=== PATIENT | female | born 1960 ===

== ENCOUNTER 2017-10-20 10:18 | Inpatient (IN) ==
[2017-10-24 16:28] VITALS: BP 129/109
== END 2017-10-24 16:25 | disposition home health service (06) | DRG 264 ==
LOC: SUATTDRO 12:23 → N.3E 12:23
PROVIDERS: ADMIT Internal Medicine; ATTEND Internal Medicine

== ENCOUNTER 2017-11-23 01:57 | Observation (INO) ==
[2017-11-23] MEDS ORDERED: GLUCAGON 1 MG VIAL IM PRN (05:20)
[2017-11-23] MEDS ORDERED: DEXTROSE 50% 25 GM/50 ML VIAL IV PRN (05:20)
[2017-11-23] MEDS ORDERED: ONDANSETRON 4 MG/2 ML VIAL IV PRN (05:20)
[2017-11-23 06:47] LABS: Basophils % 0.4 % (0.0-0.8); Eosinophils # 0.1 10*3/uL (0.0-0.87); Eosinophils % 0.8 % (0.00-10.9); Hematocrit 29.1 VOL% (35.7-47.0); Hemoglobin 9.6 GM/DL (12.0-16.0); Immature Granulocytes % 0.3 %; Immature Granulocytes Absolute 0.03 #; Lymphocytes # 1.4 10*3/uL (1.4-4.0); Lymphocytes % 14.5 % (21.3-54.2); Mean Corpuscular Hemoglobin 28 PG (27-34); Mean Corpuscular Volume 84.3 FL (87-102); Mean Platelet Volume 9.2 FL (9.6-12.0); Monocytes # 0.9 10*3/uL (0.11-0.8); Monocytes % 9.1 % (1.7-12.7); Neutrophils # 7.1 10*3/uL (1.4-7.4); Neutrophils % 74.9 % (38.7-73.9); Platelet Count 270 T/CUMM (130-400); Red Blood Count 3.45 MC/CUMM (3.8-5.5); White Blood Count 9.4 T/CUMM (4-12)
[2017-11-23 07:30] LABS: Albumin 2.3 G/DL (3.4-5.0); Bilirubin,Total 0.6 MG/DL (0.2-1.0); Calcium 8.3 MG/DL (8.5-10.1); Osmolality,Calculated 274.5 MOS/KG (273-304); Potassium 4.1 MMOL/L (3.5-5.1); Thyroid Stimulating Hormone 1.43 uIU/ml (0.358-3.74); Total Protein 7.4 G/DL (6.4-8.3)
[2017-11-23] MEDS ORDERED: CARVEDILOL 6.25 MG TABLET PO SCH (09:00)
[2017-11-23] MEDS ORDERED: ASPIRIN EC 81 MG TABLET PO SCH (09:00)
[2017-11-23] MEDS ORDERED: CLOPIDOGREL 75 MG TABLET PO SCH (09:00)
[2017-11-23] MEDS ORDERED: LEVOFLOXACIN 750 MG TABLET PO SCH (09:00)
[2017-11-23] MEDS ORDERED: sitaGLIPtin 100 MG TABLET PO SCH (09:00)
[2017-11-23] MEDS ORDERED: INSULIN LISPRO 100 UNIT/ML SUBCUT SCH (09:00)
[2017-11-23] MEDS ORDERED: OMEGA 3 ACID ETHYL ESTERS 1 GM CAPSULE PO SCH (09:00)
[2017-11-23] MEDS ORDERED: PANTOPRAZOLE 40 MG TABLET PO SCH (09:00)
[2017-11-23] MEDS ORDERED: ENOXAPARIN 40 MG/0.4 ML SYRINGE SUBCUT SCH (09:00)
[2017-11-23] MEDS ORDERED: FUROSEMIDE 20 MG TABLET PO SCH (09:00)
[2017-11-23 12:29] VITALS: BP 110/57
[2017-11-23] MEDS ORDERED: SIMVASTATIN 20 MG TABLET PO SCH (21:00)
[2017-11-23] MEDS ORDERED: MONTELUKAST 10 MG TABLET PO SCH (21:00)
[2017-11-23] MEDS ORDERED: GABAPENTIN 300 MG CAPSULE PO SCH (21:00)
[2017-11-23] MEDS ORDERED: INSULIN GLARGINE 100 UNIT/ML SUBCUT SCH (21:00)
== END 2017-11-23 14:20 | disposition home or self-care (01) ==
LOC: N.ED 01:57 → N.EDINP 01:57 → N.5E 04:27
PROVIDERS: ADMIT Internal Medicine; ATTEND Internal Medicine

== ENCOUNTER 2017-11-28 07:02 | Inpatient (IN) ==
[~2017-11-28 07:02] MED LIST: ceFAZolin 1,000 MG in SYRINGE 1 EACH IV ONE
[2017-11-28] MEDS ORDERED: ceFAZolin 1,000 MG VIAL ONE (08:56)
[2017-11-28] MEDS ORDERED: LACTATED RINGERS 1,000 ML IV SCH (09:00)
[2017-11-28] MEDS ORDERED: LIDOCAINE 1% 20 ML VIAL ONE (13:17)
[2017-11-28] MEDS ORDERED: MIDAZOLAM 2 MG/2 ML VIAL ONE (14:14)
[2017-11-28] MEDS ORDERED: fentaNYL 100 MCG/2 ML VIAL ONE (14:14)
[2017-11-28] MEDS ORDERED: HYDROmorphone 2 MG/1 ML VIAL IV PRN (14:53)
[2017-11-28] MEDS ORDERED: PROMETHAZINE 25 MG/1 ML VIAL IM PRN (14:53)
[2017-11-28] MEDS ORDERED: DEXTROSE 50% 25 GM/50 ML VIAL IV PRN (14:53)
[2017-11-28] MEDS ORDERED: GLUCAGON 1 MG VIAL IM PRN (14:53)
[2017-11-28] MEDS: LACTATED RINGERS 1,000 ML IV SCH (15:55)
[2017-11-28] MEDS: INSULIN REGULAR 100 UNIT/ML SUBCUT SCH ×2 (16:02→21:05)
[2017-11-28] MEDS: INSULIN LISPRO 100 UNIT/ML SUBCUT SCH ×2 (16:02→21:04)
[2017-11-28] MEDS: LEVOFLOXACIN 750 MG TABLET PO SCH (16:11)
[2017-11-28] MEDS: SIMVASTATIN 20 MG TABLET PO SCH (21:04)
[2017-11-28] MEDS: INSULIN GLARGINE 100 UNIT/ML SUBCUT SCH (21:04)
[2017-11-28] MEDS: GABAPENTIN 300 MG CAPSULE PO SCH (21:04)
[2017-11-28] MEDS: FUROSEMIDE 20 MG TABLET PO SCH (21:04)
[2017-11-28] MEDS: ONDANSETRON 4 MG/2 ML VIAL IV PRN (23:45)
[2017-11-29 05:16] LABS: Basophils % 0.3 % (0.0-0.8); Eosinophils # 0.1 10*3/uL (0.0-0.87); Eosinophils % 0.9 % (0.00-10.9); Hematocrit 24.8 VOL% (35.7-47.0); Hemoglobin 8.2 GM/DL (12.0-16.0); Immature Granulocytes % 0.7 %; Immature Granulocytes Absolute 0.08 #; Lymphocytes # 1.3 10*3/uL (1.4-4.0); Lymphocytes % 10.8 % (21.3-54.2); Mean Corpuscular HGB Conc 33.1 GM/DL (32-36); Mean Corpuscular Hemoglobin 28 PG (27-34); Mean Corpuscular Volume 83.8 FL (87-102); Mean Platelet Volume 8.9 FL (9.6-12.0); Monocytes # 1.1 10*3/uL (0.11-0.8); Monocytes % 9.1 % (1.7-12.7); Neutrophils # 9.2 10*3/uL (1.4-7.4); Neutrophils % 78.2 % (38.7-73.9); Platelet Count 342 T/CUMM (130-400); Red Blood Count 2.96 MC/CUMM (3.8-5.5); Red Cell Distribution Width 13.4 % (9.3-17.3); White Blood Count 11.7 T/CUMM (4-12)
[2017-11-29] MEDS: ONDANSETRON 4 MG/2 ML VIAL IV PRN (05:41)
[2017-11-29 05:51] LABS: Calcium 8.3 MG/DL (8.5-10.1); Osmolality,Calculated 271.4 MOS/KG (273-304); Potassium 4.6 MMOL/L (3.5-5.1)
[2017-11-29] MEDS: INSULIN REGULAR 100 UNIT/ML SUBCUT SCH ×4 (07:27→20:35)
[2017-11-29] MEDS: MONTELUKAST 10 MG TABLET PO SCH ×2 (09:05→09:10)
[2017-11-29] MEDS: CARVEDILOL 6.25 MG TABLET PO SCH (09:06)
[2017-11-29] MEDS: ASPIRIN EC 81 MG TABLET PO SCH (09:06)
[2017-11-29] MEDS: CLOPIDOGREL 75 MG TABLET PO SCH (09:06)
[2017-11-29] MEDS: FUROSEMIDE 20 MG TABLET PO SCH ×2 (09:06→20:34)
[2017-11-29] MEDS: OMEGA 3 ACID ETHYL ESTERS 1 GM CAPSULE PO SCH (09:06)
[2017-11-29] MEDS: INSULIN LISPRO 100 UNIT/ML SUBCUT SCH ×3 (09:08→20:35)
[2017-11-29] MEDS: ENOXAPARIN 40 MG/0.4 ML SYRINGE SUBCUT SCH (09:08)
[2017-11-29] MEDS: LACTATED RINGERS 1,000 ML IV SCH (16:10)
[2017-11-29] MEDS: GABAPENTIN 300 MG CAPSULE PO SCH (20:35)
[2017-11-29] MEDS: INSULIN GLARGINE 100 UNIT/ML SUBCUT SCH (20:35)
[2017-11-29] MEDS: SIMVASTATIN 20 MG TABLET PO SCH (20:35)
[2017-11-30] MEDS: INSULIN REGULAR 100 UNIT/ML SUBCUT SCH ×4 (08:24→21:13)
[2017-11-30] MEDS: ENOXAPARIN 40 MG/0.4 ML SYRINGE SUBCUT SCH (08:25)
[2017-11-30] MEDS: ASPIRIN EC 81 MG TABLET PO SCH (08:25)
[2017-11-30] MEDS: CLOPIDOGREL 75 MG TABLET PO SCH (08:45)
[2017-11-30] MEDS: FUROSEMIDE 20 MG TABLET PO SCH ×2 (08:45→21:13)
[2017-11-30] MEDS: INSULIN LISPRO 100 UNIT/ML SUBCUT SCH ×3 (08:45→21:14)
[2017-11-30] MEDS: CARVEDILOL 6.25 MG TABLET PO SCH (08:45)
[2017-11-30] MEDS: OMEGA 3 ACID ETHYL ESTERS 1 GM CAPSULE PO SCH (08:45)
[2017-11-30] MEDS: LACTATED RINGERS 1,000 ML IV SCH (12:31)
[2017-11-30] MEDS: LEVOFLOXACIN 750 MG TABLET PO SCH (16:17)
[2017-11-30] MEDS: MONTELUKAST 10 MG TABLET PO SCH (21:13)
[2017-11-30] MEDS: GABAPENTIN 300 MG CAPSULE PO SCH (21:13)
[2017-11-30] MEDS: SIMVASTATIN 20 MG TABLET PO SCH (21:13)
[2017-11-30] MEDS: INSULIN GLARGINE 100 UNIT/ML SUBCUT SCH (21:13)
[2017-12-01 06:18] LABS: Basophils % 0.2 % (0.0-0.8); Eosinophils # 0.2 10*3/uL (0.0-0.87); Eosinophils % 2.2 % (0.00-10.9); Hematocrit 25.5 VOL% (35.7-47.0); Hemoglobin 8.6 GM/DL (12.0-16.0); Immature Granulocytes % 1.1 %; Lymphocytes # 1.6 10*3/uL (1.4-4.0); Lymphocytes % 18.3 % (21.3-54.2); Mean Corpuscular HGB Conc 33.7 GM/DL (32-36); Mean Corpuscular Hemoglobin 28 PG (27-34); Mean Platelet Volume 9.2 FL (9.6-12.0); Monocytes # 0.9 10*3/uL (0.11-0.8); Monocytes % 9.8 % (1.7-12.7); NRBC # 0.02 10*3/uL; Neutrophils # 6.1 10*3/uL (1.4-7.4); Neutrophils % 68.4 % (38.7-73.9); Platelet Count 461 T/CUMM (130-400); Red Blood Count 3.11 MC/CUMM (3.8-5.5); Red Cell Distribution Width 13.6 % (9.3-17.3); White Blood Count 8.9 T/CUMM (4-12)
[2017-12-01 06:34] LABS: Calcium 8.2 MG/DL (8.5-10.1); Osmolality,Calculated 283.7 MOS/KG (273-304); Potassium 4.2 MMOL/L (3.5-5.1)
[2017-12-01] MEDS: INSULIN REGULAR 100 UNIT/ML SUBCUT SCH ×4 (07:51→21:10)
[2017-12-01] MEDS: ENOXAPARIN 40 MG/0.4 ML SYRINGE SUBCUT SCH (07:51)
[2017-12-01] MEDS: CARVEDILOL 6.25 MG TABLET PO SCH (07:59)
[2017-12-01] MEDS: INSULIN LISPRO 100 UNIT/ML SUBCUT SCH ×3 (08:00→21:09)
[2017-12-01] MEDS: ASPIRIN EC 81 MG TABLET PO SCH (08:00)
[2017-12-01] MEDS: CLOPIDOGREL 75 MG TABLET PO SCH (08:01)
[2017-12-01] MEDS: OMEGA 3 ACID ETHYL ESTERS 1 GM CAPSULE PO SCH (08:01)
[2017-12-01] MEDS: FUROSEMIDE 20 MG TABLET PO SCH ×2 (08:01→21:08)
[2017-12-01] MEDS ORDERED: LIDOCAINE 1% 20 ML VIAL ONE (08:45)
[2017-12-01] MEDS: SULFAMETHOX/TRIMETHOPRIM 800-160 MG TABLET PO SCH ×2 (09:45→21:08)
[2017-12-01] MEDS ORDERED: PROPOFOL 200 MG/20 ML VIAL IV ONE (09:50)
[2017-12-01] MEDS ORDERED: SODIUM CHLORIDE 0.9% 250 ML IV ONE (09:50)
[2017-12-01] MEDS ORDERED: KETAMINE 500 MG/10 ML VIAL ONE (09:50)
[2017-12-01] MEDS ORDERED: ETOMIDATE 40 MG/20 ML VIAL IV ONE (09:50)
[2017-12-01] MEDS: MONTELUKAST 10 MG TABLET PO SCH (21:08)
[2017-12-01] MEDS: SIMVASTATIN 20 MG TABLET PO SCH (21:09)
[2017-12-01] MEDS: GABAPENTIN 300 MG CAPSULE PO SCH (21:09)
[2017-12-01] MEDS: INSULIN GLARGINE 100 UNIT/ML SUBCUT SCH (21:11)
[2017-12-02] MEDS: LACTATED RINGERS 1,000 ML IV SCH ×2 (02:12→23:25)
[2017-12-02] MEDS: INSULIN REGULAR 100 UNIT/ML SUBCUT SCH ×4 (08:05→21:48)
[2017-12-02] MEDS: CLOPIDOGREL 75 MG TABLET PO SCH (09:10)
[2017-12-02] MEDS: ASPIRIN EC 81 MG TABLET PO SCH (09:10)
[2017-12-02] MEDS: ENOXAPARIN 40 MG/0.4 ML SYRINGE SUBCUT SCH (09:11)
[2017-12-02] MEDS: OMEGA 3 ACID ETHYL ESTERS 1 GM CAPSULE PO SCH (09:11)
[2017-12-02] MEDS: SULFAMETHOX/TRIMETHOPRIM 800-160 MG TABLET PO SCH ×2 (09:11→21:48)
[2017-12-02] MEDS: CARVEDILOL 6.25 MG TABLET PO SCH (09:11)
[2017-12-02] MEDS: INSULIN LISPRO 100 UNIT/ML SUBCUT SCH ×3 (09:14→21:47)
[2017-12-02] MEDS: FUROSEMIDE 20 MG TABLET PO SCH ×2 (09:17→21:47)
[2017-12-02] MEDS: ONDANSETRON 4 MG/2 ML VIAL IV PRN (19:05)
[2017-12-02] MEDS: MONTELUKAST 10 MG TABLET PO SCH (21:47)
[2017-12-02] MEDS: SIMVASTATIN 20 MG TABLET PO SCH (21:47)
[2017-12-02] MEDS: INSULIN GLARGINE 100 UNIT/ML SUBCUT SCH (21:48)
[2017-12-02] MEDS: GABAPENTIN 300 MG CAPSULE PO SCH (21:48)
[2017-12-03] MEDS: INSULIN LISPRO 100 UNIT/ML SUBCUT SCH ×3 (09:13→21:03)
[2017-12-03] MEDS: CARVEDILOL 6.25 MG TABLET PO SCH ×2 (09:14→09:16)
[2017-12-03] MEDS: OMEGA 3 ACID ETHYL ESTERS 1 GM CAPSULE PO SCH (09:14)
[2017-12-03] MEDS: ASPIRIN EC 81 MG TABLET PO SCH (09:14)
[2017-12-03] MEDS: FUROSEMIDE 20 MG TABLET PO SCH ×2 (09:14→21:14)
[2017-12-03] MEDS: CLOPIDOGREL 75 MG TABLET PO SCH (09:14)
[2017-12-03] MEDS: SULFAMETHOX/TRIMETHOPRIM 800-160 MG TABLET PO SCH ×2 (09:14→21:14)
[2017-12-03] MEDS: ENOXAPARIN 40 MG/0.4 ML SYRINGE SUBCUT SCH (09:14)
[2017-12-03] MEDS: INSULIN REGULAR 100 UNIT/ML SUBCUT SCH ×4 (09:46→21:03)
[2017-12-03] MEDS: ONDANSETRON 4 MG/2 ML VIAL IV PRN (17:52)
[2017-12-03] MEDS: GABAPENTIN 300 MG CAPSULE PO SCH (21:14)
[2017-12-03] MEDS: MONTELUKAST 10 MG TABLET PO SCH (21:14)
[2017-12-03] MEDS: INSULIN GLARGINE 100 UNIT/ML SUBCUT SCH (21:15)
[2017-12-03] MEDS: SIMVASTATIN 20 MG TABLET PO SCH (21:15)
[2017-12-03] MEDS: LACTATED RINGERS 1,000 ML IV SCH (21:22)
[2017-12-04] MEDS: ONDANSETRON 4 MG/2 ML VIAL IV PRN ×2 (04:24→17:15)
[2017-12-04] MEDS: INSULIN REGULAR 100 UNIT/ML SUBCUT SCH ×4 (09:19→22:41)
[2017-12-04] MEDS: ENOXAPARIN 40 MG/0.4 ML SYRINGE SUBCUT SCH (09:21)
[2017-12-04] MEDS: ASPIRIN EC 81 MG TABLET PO SCH (09:21)
[2017-12-04] MEDS: OMEGA 3 ACID ETHYL ESTERS 1 GM CAPSULE PO SCH (09:21)
[2017-12-04] MEDS: SULFAMETHOX/TRIMETHOPRIM 800-160 MG TABLET PO SCH ×2 (09:21→21:15)
[2017-12-04] MEDS: FUROSEMIDE 20 MG TABLET PO SCH ×2 (09:22→21:15)
[2017-12-04] MEDS: CLOPIDOGREL 75 MG TABLET PO SCH (09:22)
[2017-12-04] MEDS: INSULIN LISPRO 100 UNIT/ML SUBCUT SCH ×3 (09:22→22:40)
[2017-12-04] MEDS: CARVEDILOL 6.25 MG TABLET PO SCH (09:22)
[2017-12-04] MEDS ORDERED: BISACODYL 5 MG TABLET PO PRN (10:07)
[2017-12-04] MEDS: DOCUSATE SODIUM 100 MG CAPSULE PO SCH ×2 (10:26→21:15)
[2017-12-04] MEDS: INSULIN GLARGINE 100 UNIT/ML SUBCUT SCH (21:15)
[2017-12-04] MEDS: MONTELUKAST 10 MG TABLET PO SCH (21:15)
[2017-12-04] MEDS: GABAPENTIN 300 MG CAPSULE PO SCH (21:15)
[2017-12-04] MEDS: SIMVASTATIN 20 MG TABLET PO SCH (21:15)
[2017-12-05] MEDS: OMEGA 3 ACID ETHYL ESTERS 1 GM CAPSULE PO SCH (08:48)
[2017-12-05] MEDS: DOCUSATE SODIUM 100 MG CAPSULE PO SCH ×2 (08:48→22:18)
[2017-12-05] MEDS: SULFAMETHOX/TRIMETHOPRIM 800-160 MG TABLET PO SCH ×2 (08:48→22:18)
[2017-12-05] MEDS: FUROSEMIDE 20 MG TABLET PO SCH ×2 (08:48→22:18)
[2017-12-05] MEDS: CARVEDILOL 6.25 MG TABLET PO SCH (08:48)
[2017-12-05] MEDS: CLOPIDOGREL 75 MG TABLET PO SCH (08:48)
[2017-12-05] MEDS: ENOXAPARIN 40 MG/0.4 ML SYRINGE SUBCUT SCH (08:48)
[2017-12-05] MEDS: ASPIRIN EC 81 MG TABLET PO SCH (08:48)
[2017-12-05] MEDS: INSULIN REGULAR 100 UNIT/ML SUBCUT SCH ×4 (08:49→22:17)
[2017-12-05] MEDS: INSULIN LISPRO 100 UNIT/ML SUBCUT SCH ×3 (08:49→22:17)
[2017-12-05] MEDS: POLYETHYLENE GLYCOL POWDER 17 GM PACK PO SCH (08:49)
[2017-12-05] MEDS: INSULIN GLARGINE 100 UNIT/ML SUBCUT SCH (22:17)
[2017-12-05] MEDS: MONTELUKAST 10 MG TABLET PO SCH (22:18)
[2017-12-05] MEDS: SIMVASTATIN 20 MG TABLET PO SCH (22:18)
[2017-12-05] MEDS: GABAPENTIN 300 MG CAPSULE PO SCH (22:18)
[2017-12-06 05:29] LABS: Osmolality,Calculated 270.2 MOS/KG (273-304); Potassium 4.1 MMOL/L (3.5-5.1)
[2017-12-06 06:50] LABS: Basophils % 0.1 % (0.0-0.8); Eosinophils # 0.1 10*3/uL (0.0-0.87); Eosinophils % 1.2 % (0.00-10.9); Immature Granulocytes % 0.9 %; Immature Granulocytes Absolute 0.08 #; Lymphocytes # 1.5 10*3/uL (1.4-4.0); Lymphocytes % 18.2 % (21.3-54.2); Mean Corpuscular HGB Conc 32.1 GM/DL (32-36); Mean Corpuscular Hemoglobin 27 PG (27-34); Mean Corpuscular Volume 85.2 FL (87-102); Mean Platelet Volume 8.8 FL (9.6-12.0); Monocytes # 0.8 10*3/uL (0.11-0.8); Monocytes % 9.4 % (1.7-12.7); NRBC # 0.02 10*3/uL; Neutrophils % 70.2 % (38.7-73.9); Platelet Count 444 T/CUMM (130-400); Red Blood Count 2.23 MC/CUMM (3.8-5.5); White Blood Count 8.5 T/CUMM (4-12)
[2017-12-06 06:54] LABS: Hemoglobin 6.1 GM/DL (12.0-16.0)
[2017-12-06] MEDS: INSULIN LISPRO 100 UNIT/ML SUBCUT SCH ×3 (07:23→21:50)
[2017-12-06] MEDS: INSULIN REGULAR 100 UNIT/ML SUBCUT SCH ×4 (07:23→21:50)
[2017-12-06] MEDS ORDERED: SODIUM CHLORIDE 0.9% 1,000 ML IV PRN (07:28)
[2017-12-06] MEDS: ASPIRIN EC 81 MG TABLET PO SCH (09:20)
[2017-12-06] MEDS: CARVEDILOL 6.25 MG TABLET PO SCH (09:21)
[2017-12-06] MEDS: SULFAMETHOX/TRIMETHOPRIM 800-160 MG TABLET PO SCH ×2 (09:21→21:49)
[2017-12-06] MEDS: FUROSEMIDE 20 MG TABLET PO SCH ×2 (09:21→21:49)
[2017-12-06] MEDS: DOCUSATE SODIUM 100 MG CAPSULE PO SCH ×2 (09:21→21:49)
[2017-12-06] MEDS: OMEGA 3 ACID ETHYL ESTERS 1 GM CAPSULE PO SCH (09:21)
[2017-12-06] MEDS: POLYETHYLENE GLYCOL POWDER 17 GM PACK PO SCH (09:22)
[2017-12-06] MEDS: ENOXAPARIN 40 MG/0.4 ML SYRINGE SUBCUT SCH (09:46)
[2017-12-06] MEDS: CLOPIDOGREL 75 MG TABLET PO SCH (09:47)
[2017-12-06] MEDS: MONTELUKAST 10 MG TABLET PO SCH (21:49)
[2017-12-06] MEDS: GABAPENTIN 300 MG CAPSULE PO SCH (21:49)
[2017-12-06] MEDS: SIMVASTATIN 20 MG TABLET PO SCH (21:49)
[2017-12-06] MEDS: INSULIN GLARGINE 100 UNIT/ML SUBCUT SCH (21:49)
[2017-12-07 06:33] LABS: Basophils % 0.2 % (0.0-0.8); Eosinophils # 0.1 10*3/uL (0.0-0.87); Eosinophils % 0.9 % (0.00-10.9); Hemoglobin 9.6 GM/DL (12.0-16.0); Immature Granulocytes % 0.5 %; Immature Granulocytes Absolute 0.05 #; Lymphocytes # 1.2 10*3/uL (1.4-4.0); Lymphocytes % 13.1 % (21.3-54.2); Mean Corpuscular Hemoglobin 27 PG (27-34); Mean Platelet Volume 8.7 FL (9.6-12.0); Monocytes # 0.5 10*3/uL (0.11-0.8); Monocytes % 5.5 % (1.7-12.7); Neutrophils # 7.3 10*3/uL (1.4-7.4); Neutrophils % 79.8 % (38.7-73.9); Platelet Count 514 T/CUMM (130-400); Red Blood Count 3.53 MC/CUMM (3.8-5.5); Red Cell Distribution Width 15.3 % (9.3-17.3); White Blood Count 9.2 T/CUMM (4-12)
[2017-12-07] MEDS: INSULIN REGULAR 100 UNIT/ML SUBCUT SCH ×4 (09:12→22:18)
[2017-12-07] MEDS: INSULIN LISPRO 100 UNIT/ML SUBCUT SCH ×3 (09:13→22:19)
[2017-12-07] MEDS: CARVEDILOL 6.25 MG TABLET PO SCH (09:13)
[2017-12-07] MEDS: OMEGA 3 ACID ETHYL ESTERS 1 GM CAPSULE PO SCH (09:13)
[2017-12-07] MEDS: FUROSEMIDE 20 MG TABLET PO SCH ×2 (09:13→22:13)
[2017-12-07] MEDS: DOCUSATE SODIUM 100 MG CAPSULE PO SCH ×2 (09:13→22:13)
[2017-12-07] MEDS: SULFAMETHOX/TRIMETHOPRIM 800-160 MG TABLET PO SCH ×2 (09:13→22:13)
[2017-12-07] MEDS: POLYETHYLENE GLYCOL POWDER 17 GM PACK PO SCH (09:14)
[2017-12-07] MEDS ORDERED: POLYETHYLENE GLYCOL POWDER 255 GM BOTTLE PO ONE (18:00)
[2017-12-07] MEDS: MAGNESIUM CITRATE 300 ML BOTTLE PO ONE ×2 (22:13→22:15)
[2017-12-07] MEDS: GABAPENTIN 300 MG CAPSULE PO SCH (22:13)
[2017-12-07] MEDS: MONTELUKAST 10 MG TABLET PO SCH (22:13)
[2017-12-07] MEDS: SIMVASTATIN 20 MG TABLET PO SCH (22:13)
[2017-12-07] MEDS: INSULIN GLARGINE 100 UNIT/ML SUBCUT SCH (22:19)
[2017-12-08 04:28] LABS: Basophils % 0.2 % (0.0-0.8); Eosinophils # 0.2 10*3/uL (0.0-0.87); Eosinophils % 1.8 % (0.00-10.9); Hematocrit 23.9 VOL% (35.7-47.0); Immature Granulocytes % 0.4 %; Immature Granulocytes Absolute 0.04 #; Lymphocytes # 1.2 10*3/uL (1.4-4.0); Lymphocytes % 12.7 % (21.3-54.2); Mean Corpuscular HGB Conc 33.5 GM/DL (32-36); Mean Corpuscular Hemoglobin 28 PG (27-34); Mean Corpuscular Volume 83.9 FL (87-102); Mean Platelet Volume 8.6 FL (9.6-12.0); Monocytes # 0.7 10*3/uL (0.11-0.8); Monocytes % 7.5 % (1.7-12.7); Neutrophils # 7.3 10*3/uL (1.4-7.4); Neutrophils % 77.4 % (38.7-73.9); Platelet Count 429 T/CUMM (130-400); Red Blood Count 2.85 MC/CUMM (3.8-5.5); Red Cell Distribution Width 15.2 % (9.3-17.3); White Blood Count 9.5 T/CUMM (4-12)
[2017-12-08 07:50] LABS: Osmolality,Calculated 264.5 MOS/KG (273-304); Potassium 4.4 MMOL/L (3.5-5.1)
[2017-12-08] MEDS: INSULIN REGULAR 100 UNIT/ML SUBCUT SCH ×4 (08:00→20:42)
[2017-12-08] MEDS: INSULIN LISPRO 100 UNIT/ML SUBCUT SCH ×4 (08:19→20:42)
[2017-12-08] MEDS: CARVEDILOL 6.25 MG TABLET PO SCH (08:58)
[2017-12-08] MEDS: FUROSEMIDE 20 MG TABLET PO SCH ×2 (08:59→20:41)
[2017-12-08] MEDS: OMEGA 3 ACID ETHYL ESTERS 1 GM CAPSULE PO SCH (08:59)
[2017-12-08] MEDS: SULFAMETHOX/TRIMETHOPRIM 800-160 MG TABLET PO SCH ×2 (08:59→20:41)
[2017-12-08] MEDS: DOCUSATE SODIUM 100 MG CAPSULE PO SCH ×2 (08:59→20:41)
[2017-12-08] MEDS: POLYETHYLENE GLYCOL POWDER 17 GM PACK PO SCH (08:59)
[2017-12-08] MEDS ORDERED: LIDOCAINE 2% 5 ML VIAL ONE (10:00)
[2017-12-08] MEDS ORDERED: PROPOFOL 200 MG/20 ML VIAL IV ONE (10:00)
[2017-12-08] MEDS: SODIUM HYPOCHLORITE 0.25% IRRIG 473 ML BOTTLE TOP SCH ×2 (11:20→20:52)
[2017-12-08] MEDS: SIMVASTATIN 20 MG TABLET PO SCH (20:41)
[2017-12-08] MEDS: MONTELUKAST 10 MG TABLET PO SCH (20:41)
[2017-12-08] MEDS: INSULIN GLARGINE 100 UNIT/ML SUBCUT SCH (20:42)
[2017-12-08] MEDS: GABAPENTIN 300 MG CAPSULE PO SCH (20:50)
[2017-12-09 05:59] LABS: Basophils % 0.3 % (0.0-0.8); Eosinophils # 0.2 10*3/uL (0.0-0.87); Eosinophils % 2.2 % (0.00-10.9); Hematocrit 25.2 VOL% (35.7-47.0); Hemoglobin 8.2 GM/DL (12.0-16.0); Immature Granulocytes % 0.5 %; Immature Granulocytes Absolute 0.04 #; Lymphocytes # 1.3 10*3/uL (1.4-4.0); Lymphocytes % 17.9 % (21.3-54.2); Mean Corpuscular HGB Conc 32.5 GM/DL (32-36); Mean Corpuscular Hemoglobin 27 PG (27-34); Mean Corpuscular Volume 82.4 FL (87-102); Mean Platelet Volume 8.6 FL (9.6-12.0); Monocytes # 0.6 10*3/uL (0.11-0.8); Monocytes % 8.3 % (1.7-12.7); NRBC # 0.02 10*3/uL; Neutrophils # 5.2 10*3/uL (1.4-7.4); Neutrophils % 70.8 % (38.7-73.9); Platelet Count 484 T/CUMM (130-400); Red Blood Count 3.06 MC/CUMM (3.8-5.5); Red Cell Distribution Width 15.3 % (9.3-17.3); White Blood Count 7.3 T/CUMM (4-12)
[2017-12-09] MEDS: INSULIN REGULAR 100 UNIT/ML SUBCUT SCH ×4 (06:39→21:18)
[2017-12-09] MEDS: INSULIN LISPRO 100 UNIT/ML SUBCUT SCH ×3 (06:39→21:17)
[2017-12-09] MEDS ORDERED: FUROSEMIDE 40 MG TABLET ONE (08:28)
[2017-12-09] MEDS: SODIUM HYPOCHLORITE 0.25% IRRIG 473 ML BOTTLE TOP SCH ×2 (09:10→21:17)
[2017-12-09] MEDS: ENOXAPARIN 40 MG/0.4 ML SYRINGE SUBCUT SCH (09:27)
[2017-12-09] MEDS: SULFAMETHOX/TRIMETHOPRIM 800-160 MG TABLET PO SCH ×2 (09:28→21:17)
[2017-12-09] MEDS: DOCUSATE SODIUM 100 MG CAPSULE PO SCH ×2 (09:28→21:16)
[2017-12-09] MEDS: ASPIRIN EC 81 MG TABLET PO SCH (09:28)
[2017-12-09] MEDS: CARVEDILOL 6.25 MG TABLET PO SCH (09:28)
[2017-12-09] MEDS: FUROSEMIDE 20 MG TABLET PO SCH ×2 (09:29→21:17)
[2017-12-09] MEDS: OMEGA 3 ACID ETHYL ESTERS 1 GM CAPSULE PO SCH (09:29)
[2017-12-09] MEDS: CLOPIDOGREL 75 MG TABLET PO SCH (09:29)
[2017-12-09] MEDS: POLYETHYLENE GLYCOL POWDER 17 GM PACK PO SCH (09:30)
[2017-12-09] MEDS ORDERED: SODIUM CHLORIDE 0.9% 250 ML IV ONE (12:00)
[2017-12-09] MEDS: SODIUM CHLORIDE 0.9% 1,000 ML IV SCH ×2 (13:01→21:23)
[2017-12-09] MEDS: SIMVASTATIN 20 MG TABLET PO SCH (21:16)
[2017-12-09] MEDS: GABAPENTIN 300 MG CAPSULE PO SCH (21:16)
[2017-12-09] MEDS: MONTELUKAST 10 MG TABLET PO SCH (21:16)
[2017-12-09] MEDS: INSULIN GLARGINE 100 UNIT/ML SUBCUT SCH (21:18)
[2017-12-10] MEDS ORDERED: LIDOCAINE 1% 20 ML VIAL ONE (06:46)
[2017-12-10] MEDS ORDERED: BUPIVACAINE MPF 0.25% 30 ML VIAL ONE (06:46)
[2017-12-10] MEDS: INSULIN REGULAR 100 UNIT/ML SUBCUT SCH ×4 (07:30→21:09)
[2017-12-10] MEDS: SODIUM HYPOCHLORITE 0.25% IRRIG 473 ML BOTTLE TOP SCH ×2 (09:00→21:03)
[2017-12-10] MEDS: INSULIN LISPRO 100 UNIT/ML SUBCUT SCH ×3 (09:00→21:13)
[2017-12-10] MEDS ORDERED: MIDAZOLAM 2 MG/2 ML VIAL ONE (09:19)
[2017-12-10] MEDS ORDERED: fentaNYL 100 MCG/2 ML VIAL ONE (09:19)
[2017-12-10] MEDS: DOCUSATE SODIUM 100 MG CAPSULE PO SCH ×2 (11:49→21:07)
[2017-12-10] MEDS: SULFAMETHOX/TRIMETHOPRIM 800-160 MG TABLET PO SCH ×2 (11:50→21:07)
[2017-12-10] MEDS: CARVEDILOL 6.25 MG TABLET PO SCH (11:50)
[2017-12-10] MEDS: OMEGA 3 ACID ETHYL ESTERS 1 GM CAPSULE PO SCH (11:50)
[2017-12-10] MEDS: POLYETHYLENE GLYCOL POWDER 17 GM PACK PO SCH (11:50)
[2017-12-10] MEDS: FUROSEMIDE 20 MG TABLET PO SCH ×2 (11:51→21:07)
[2017-12-10 12:58] LABS: Hematocrit 23.8 VOL% (35.7-47.0); Hemoglobin 7.8 GM/DL (12.0-16.0)
[2017-12-10] MEDS: ENOXAPARIN 40 MG/0.4 ML SYRINGE SUBCUT SCH (14:56)
[2017-12-10] MEDS: CLOPIDOGREL 75 MG TABLET PO SCH (15:02)
[2017-12-10] MEDS: ASPIRIN EC 81 MG TABLET PO SCH (15:02)
[2017-12-10] MEDS: GABAPENTIN 300 MG CAPSULE PO SCH (21:07)
[2017-12-10] MEDS: SIMVASTATIN 20 MG TABLET PO SCH (21:07)
[2017-12-10] MEDS: MONTELUKAST 10 MG TABLET PO SCH (21:07)
[2017-12-10] MEDS: INSULIN GLARGINE 100 UNIT/ML SUBCUT SCH (21:13)
[2017-12-10] MEDS: SODIUM CHLORIDE 0.9% 1,000 ML IV SCH ×2 (21:14→21:15)
[2017-12-11] MEDS: ONDANSETRON 4 MG/2 ML VIAL IV PRN ×2 (03:00→06:38)
[2017-12-11] MEDS: SODIUM CHLORIDE 0.9% 1,000 ML IV SCH ×3 (05:10→19:40)
[2017-12-11 07:09] LABS: Calcium 7.4 MG/DL (8.5-10.1); Osmolality,Calculated 278.7 MOS/KG (273-304); Potassium 4.9 MMOL/L (3.5-5.1)
[2017-12-11] MEDS ORDERED: PIPERACILLIN/TAZOBACTAM 3,375 MG in SODIUM CHLORIDE 0.9% 100 ML IV SCH (08:30)
[2017-12-11 08:33] LABS: Basophils % 0.5 % (0.0-0.8); Eosinophils # 0.2 10*3/uL (0.0-0.87); Hemoglobin 6.7 GM/DL (12.0-16.0); Immature Granulocytes % 0.6 %; Immature Granulocytes Absolute 0.05 #; Lymphocytes # 1.2 10*3/uL (1.4-4.0); Lymphocytes % 15.4 % (21.3-54.2); Mean Corpuscular HGB Conc 31.9 GM/DL (32-36); Mean Corpuscular Hemoglobin 27 PG (27-34); Mean Corpuscular Volume 85.4 FL (87-102); Mean Platelet Volume 8.5 FL (9.6-12.0); Monocytes # 0.6 10*3/uL (0.11-0.8); Monocytes % 7.9 % (1.7-12.7); Neutrophils # 5.6 10*3/uL (1.4-7.4); Neutrophils % 72.6 % (38.7-73.9); Platelet Count 398 T/CUMM (130-400); Red Blood Count 2.46 MC/CUMM (3.8-5.5); Red Cell Distribution Width 15.3 % (9.3-17.3); White Blood Count 7.7 T/CUMM (4-12)
[2017-12-11] MEDS: INSULIN REGULAR 100 UNIT/ML SUBCUT SCH ×4 (08:58→21:54)
[2017-12-11] MEDS: ENOXAPARIN 40 MG/0.4 ML SYRINGE SUBCUT SCH (08:59)
[2017-12-11] MEDS: OMEGA 3 ACID ETHYL ESTERS 1 GM CAPSULE PO SCH (08:59)
[2017-12-11] MEDS: DOCUSATE SODIUM 100 MG CAPSULE PO SCH ×2 (08:59→21:54)
[2017-12-11] MEDS: CLOPIDOGREL 75 MG TABLET PO SCH (08:59)
[2017-12-11] MEDS: FUROSEMIDE 20 MG TABLET PO SCH ×2 (08:59→21:54)
[2017-12-11] MEDS: POLYETHYLENE GLYCOL POWDER 17 GM PACK PO SCH (08:59)
[2017-12-11] MEDS: INSULIN LISPRO 100 UNIT/ML SUBCUT SCH ×3 (08:59→21:15)
[2017-12-11] MEDS: CARVEDILOL 6.25 MG TABLET PO SCH (09:00)
[2017-12-11] MEDS: ASPIRIN EC 81 MG TABLET PO SCH (09:00)
[2017-12-11] MEDS: SODIUM HYPOCHLORITE 0.25% IRRIG 473 ML BOTTLE TOP SCH ×2 (09:10→21:14)
[2017-12-11] MEDS: VANCOMYCIN INJ 1,000 MG in SODIUM CHLORIDE 0.9% 250 ML IV SCH (10:03)
[2017-12-11] MEDS: PIPERACILLIN/TAZOBACTAM 3,375 MG in SODIUM CHLORIDE 0.9% 100 ML IV SCH (12:04)
[2017-12-11] MEDS ORDERED: SODIUM CHLORIDE 0.9% 1,000 ML IV PRN (15:27)
[2017-12-11] MEDS: INSULIN GLARGINE 100 UNIT/ML SUBCUT SCH (21:14)
[2017-12-11] MEDS: SIMVASTATIN 20 MG TABLET PO SCH (21:56)
[2017-12-11] MEDS: MONTELUKAST 10 MG TABLET PO SCH (21:57)
[2017-12-11] MEDS: GABAPENTIN 300 MG CAPSULE PO SCH (21:57)
[2017-12-12] MEDS: SODIUM CHLORIDE 0.9% 1,000 ML IV SCH ×3 (03:45→21:20)
[2017-12-12] MEDS: PIPERACILLIN/TAZOBACTAM 3,375 MG in SODIUM CHLORIDE 0.9% 100 ML IV SCH ×3 (03:45→23:47)
[2017-12-12 05:52] LABS: Basophils # 0.1 10*3/uL (0.0-0.2); Eosinophils # 0.2 10*3/uL (0.0-0.87); Eosinophils % 3.1 % (0.00-10.9); Hematocrit 26.5 VOL% (35.7-47.0); Hemoglobin 8.2 GM/DL (12.0-16.0); Immature Granulocytes % 0.3 %; Immature Granulocytes Absolute 0.02 #; Lymphocytes # 1.4 10*3/uL (1.4-4.0); Lymphocytes % 23.3 % (21.3-54.2); Mean Corpuscular HGB Conc 30.9 GM/DL (32-36); Mean Corpuscular Hemoglobin 27 PG (27-34); Mean Corpuscular Volume 87.5 FL (87-102); Mean Platelet Volume 8.8 FL (9.6-12.0); Monocytes # 0.7 10*3/uL (0.11-0.8); Monocytes % 11.2 % (1.7-12.7); Neutrophils # 3.8 10*3/uL (1.4-7.4); Neutrophils % 61.1 % (38.7-73.9); Platelet Count 382 T/CUMM (130-400); Red Blood Count 3.03 MC/CUMM (3.8-5.5); Red Cell Distribution Width 15.3 % (9.3-17.3); White Blood Count 6.2 T/CUMM (4-12)
[2017-12-12 06:10] LABS: Calcium 7.8 MG/DL (8.5-10.1); Osmolality,Calculated 277.5 MOS/KG (273-304); Potassium 4.5 MMOL/L (3.5-5.1)
[2017-12-12] MEDS: OMEGA 3 ACID ETHYL ESTERS 1 GM CAPSULE PO SCH (10:00)
[2017-12-12] MEDS: ASPIRIN EC 81 MG TABLET PO SCH (10:00)
[2017-12-12] MEDS: CARVEDILOL 6.25 MG TABLET PO SCH (10:00)
[2017-12-12] MEDS: POLYETHYLENE GLYCOL POWDER 17 GM PACK PO SCH (10:00)
[2017-12-12] MEDS: FUROSEMIDE 20 MG TABLET PO SCH ×2 (10:00→21:24)
[2017-12-12] MEDS: CLOPIDOGREL 75 MG TABLET PO SCH (10:00)
[2017-12-12] MEDS: DOCUSATE SODIUM 100 MG CAPSULE PO SCH ×2 (10:00→21:24)
[2017-12-12] MEDS: VANCOMYCIN INJ 1,000 MG in SODIUM CHLORIDE 0.9% 250 ML IV SCH (10:00)
[2017-12-12] MEDS: SODIUM HYPOCHLORITE 0.25% IRRIG 473 ML BOTTLE TOP SCH ×2 (11:04→21:26)
[2017-12-12] MEDS: ENOXAPARIN 40 MG/0.4 ML SYRINGE SUBCUT SCH (16:07)
[2017-12-12] MEDS: INSULIN REGULAR 100 UNIT/ML SUBCUT SCH ×4 (16:38→21:26)
[2017-12-12] MEDS: INSULIN LISPRO 100 UNIT/ML SUBCUT SCH ×3 (16:39→21:25)
[2017-12-12] MEDS: SIMVASTATIN 20 MG TABLET PO SCH (21:24)
[2017-12-12] MEDS: MONTELUKAST 10 MG TABLET PO SCH (21:24)
[2017-12-12] MEDS: GABAPENTIN 300 MG CAPSULE PO SCH (21:24)
[2017-12-12] MEDS: INSULIN GLARGINE 100 UNIT/ML SUBCUT SCH (21:26)
[2017-12-13 06:23] LABS: Basophils % 0.5 % (0.0-0.8); Eosinophils # 0.2 10*3/uL (0.0-0.87); Eosinophils % 4.2 % (0.00-10.9); Hematocrit 25.7 VOL% (35.7-47.0); Hemoglobin 8.4 GM/DL (12.0-16.0); Immature Granulocytes % 0.7 %; Immature Granulocytes Absolute 0.04 #; Lymphocytes # 1.2 10*3/uL (1.4-4.0); Lymphocytes % 20.4 % (21.3-54.2); Mean Corpuscular HGB Conc 32.7 GM/DL (32-36); Mean Corpuscular Hemoglobin 27 PG (27-34); Mean Corpuscular Volume 83.4 FL (87-102); Mean Platelet Volume 8.8 FL (9.6-12.0); Monocytes # 0.7 10*3/uL (0.11-0.8); Monocytes % 11.9 % (1.7-12.7); Neutrophils # 3.5 10*3/uL (1.4-7.4); Neutrophils % 62.3 % (38.7-73.9); Platelet Count 383 T/CUMM (130-400); Red Blood Count 3.08 MC/CUMM (3.8-5.5); Red Cell Distribution Width 15.3 % (9.3-17.3); White Blood Count 5.7 T/CUMM (4-12)
[2017-12-13 06:38] LABS: Calcium 7.8 MG/DL (8.5-10.1); Osmolality,Calculated 279.5 MOS/KG (273-304)
[2017-12-13] MEDS: INSULIN LISPRO 100 UNIT/ML SUBCUT SCH ×3 (09:40→21:19)
[2017-12-13] MEDS: PIPERACILLIN/TAZOBACTAM 3,375 MG in SODIUM CHLORIDE 0.9% 100 ML IV SCH ×2 (09:40→21:21)
[2017-12-13] MEDS: SODIUM HYPOCHLORITE 0.25% IRRIG 473 ML BOTTLE TOP SCH ×2 (09:40→21:58)
[2017-12-13] MEDS: CARVEDILOL 6.25 MG TABLET PO SCH (12:33)
[2017-12-13] MEDS: DOCUSATE SODIUM 100 MG CAPSULE PO SCH ×2 (12:33→21:18)
[2017-12-13] MEDS: ASPIRIN EC 81 MG TABLET PO SCH (12:34)
[2017-12-13] MEDS: ENOXAPARIN 40 MG/0.4 ML SYRINGE SUBCUT SCH (12:35)
[2017-12-13] MEDS: INSULIN REGULAR 100 UNIT/ML SUBCUT SCH ×3 (12:35→21:19)
[2017-12-13] MEDS: CLOPIDOGREL 75 MG TABLET PO SCH (12:36)
[2017-12-13] MEDS: OMEGA 3 ACID ETHYL ESTERS 1 GM CAPSULE PO SCH (12:36)
[2017-12-13] MEDS: FUROSEMIDE 20 MG TABLET PO SCH ×2 (12:36→21:18)
[2017-12-13] MEDS: POLYETHYLENE GLYCOL POWDER 17 GM PACK PO SCH (12:37)
[2017-12-13] MEDS: VANCOMYCIN INJ 1,000 MG in SODIUM CHLORIDE 0.9% 250 ML IV SCH (15:30)
[2017-12-13] MEDS: SODIUM CHLORIDE 0.9% 1,000 ML IV SCH ×2 (18:05→18:06)
[2017-12-13] MEDS: SIMVASTATIN 20 MG TABLET PO SCH (21:18)
[2017-12-13] MEDS: MONTELUKAST 10 MG TABLET PO SCH (21:18)
[2017-12-13] MEDS: GABAPENTIN 300 MG CAPSULE PO SCH (21:18)
[2017-12-13] MEDS: INSULIN GLARGINE 100 UNIT/ML SUBCUT SCH (21:19)
[2017-12-14] MEDS: SODIUM CHLORIDE 0.9% 1,000 ML IV SCH ×4 (05:19→21:48)
[2017-12-14] MEDS: PIPERACILLIN/TAZOBACTAM 3,375 MG in SODIUM CHLORIDE 0.9% 100 ML IV SCH ×3 (05:19→21:10)
[2017-12-14] MEDS: FUROSEMIDE 20 MG TABLET PO SCH ×2 (08:53→20:50)
[2017-12-14] MEDS: CLOPIDOGREL 75 MG TABLET PO SCH (08:54)
[2017-12-14] MEDS: OMEGA 3 ACID ETHYL ESTERS 1 GM CAPSULE PO SCH (08:54)
[2017-12-14] MEDS: ASPIRIN EC 81 MG TABLET PO SCH (08:54)
[2017-12-14] MEDS: DOCUSATE SODIUM 100 MG CAPSULE PO SCH ×2 (08:54→21:48)
[2017-12-14] MEDS: CARVEDILOL 6.25 MG TABLET PO SCH (08:55)
[2017-12-14] MEDS: POLYETHYLENE GLYCOL POWDER 17 GM PACK PO SCH (08:55)
[2017-12-14] MEDS: INSULIN REGULAR 100 UNIT/ML SUBCUT SCH ×4 (08:57→20:50)
[2017-12-14] MEDS: ENOXAPARIN 40 MG/0.4 ML SYRINGE SUBCUT SCH (08:58)
[2017-12-14] MEDS: INSULIN LISPRO 100 UNIT/ML SUBCUT SCH ×3 (08:59→20:50)
[2017-12-14] MEDS: SODIUM HYPOCHLORITE 0.25% IRRIG 473 ML BOTTLE TOP SCH ×2 (09:27→21:10)
[2017-12-14] MEDS: VANCOMYCIN INJ 1,000 MG in SODIUM CHLORIDE 0.9% 250 ML IV SCH (18:30)
[2017-12-14] MEDS: MONTELUKAST 10 MG TABLET PO SCH (20:50)
[2017-12-14] MEDS: GABAPENTIN 300 MG CAPSULE PO SCH (20:50)
[2017-12-14] MEDS: INSULIN GLARGINE 100 UNIT/ML SUBCUT SCH (20:50)
[2017-12-14] MEDS: SIMVASTATIN 20 MG TABLET PO SCH (20:50)
[2017-12-15] MEDS: PIPERACILLIN/TAZOBACTAM 3,375 MG in SODIUM CHLORIDE 0.9% 100 ML IV SCH ×3 (05:08→21:48)
[2017-12-15] MEDS: SODIUM CHLORIDE 0.9% 1,000 ML IV SCH ×3 (05:36→22:27)
[2017-12-15] MEDS: POLYETHYLENE GLYCOL POWDER 17 GM PACK PO SCH (08:54)
[2017-12-15] MEDS: DOCUSATE SODIUM 100 MG CAPSULE PO SCH ×2 (08:55→21:06)
[2017-12-15] MEDS: FUROSEMIDE 20 MG TABLET PO SCH ×2 (08:55→21:07)
[2017-12-15] MEDS: CARVEDILOL 6.25 MG TABLET PO SCH (08:55)
[2017-12-15] MEDS: OMEGA 3 ACID ETHYL ESTERS 1 GM CAPSULE PO SCH (08:55)
[2017-12-15] MEDS: ASPIRIN EC 81 MG TABLET PO SCH (08:55)
[2017-12-15] MEDS: INSULIN LISPRO 100 UNIT/ML SUBCUT SCH ×3 (08:56→21:04)
[2017-12-15] MEDS: CLOPIDOGREL 75 MG TABLET PO SCH (08:56)
[2017-12-15] MEDS: INSULIN REGULAR 100 UNIT/ML SUBCUT SCH ×4 (08:56→21:04)
[2017-12-15] MEDS: ENOXAPARIN 40 MG/0.4 ML SYRINGE SUBCUT SCH (09:38)
[2017-12-15] MEDS: SODIUM HYPOCHLORITE 0.25% IRRIG 473 ML BOTTLE TOP SCH ×2 (10:45→21:07)
[2017-12-15] MEDS: VANCOMYCIN INJ 1,000 MG in SODIUM CHLORIDE 0.9% 250 ML IV SCH (17:13)
[2017-12-15] MEDS: INSULIN GLARGINE 100 UNIT/ML SUBCUT SCH (21:06)
[2017-12-15] MEDS: SIMVASTATIN 20 MG TABLET PO SCH (21:07)
[2017-12-15] MEDS: GABAPENTIN 300 MG CAPSULE PO SCH (21:07)
[2017-12-15] MEDS: MONTELUKAST 10 MG TABLET PO SCH (21:07)
[2017-12-16] MEDS: PIPERACILLIN/TAZOBACTAM 3,375 MG in SODIUM CHLORIDE 0.9% 100 ML IV SCH (05:29)
[2017-12-16] MEDS: SODIUM CHLORIDE 0.9% 1,000 ML IV SCH ×3 (05:31→20:55)
[2017-12-16 07:09] LABS: Calcium 9.3 MG/DL (8.5-10.1); Osmolality,Calculated 283.7 MOS/KG (273-304); Potassium 3.8 MMOL/L (3.5-5.1)
[2017-12-16] MEDS: INSULIN REGULAR 100 UNIT/ML SUBCUT SCH ×4 (07:36→20:54)
[2017-12-16] MEDS: INSULIN LISPRO 100 UNIT/ML SUBCUT SCH ×3 (07:36→20:55)
[2017-12-16] MEDS: SODIUM HYPOCHLORITE 0.25% IRRIG 473 ML BOTTLE TOP SCH ×2 (08:00→20:55)
[2017-12-16] MEDS: ENOXAPARIN 40 MG/0.4 ML SYRINGE SUBCUT SCH (09:33)
[2017-12-16] MEDS: CARVEDILOL 6.25 MG TABLET PO SCH (09:34)
[2017-12-16] MEDS: DOCUSATE SODIUM 100 MG CAPSULE PO SCH ×2 (09:34→20:54)
[2017-12-16] MEDS: OMEGA 3 ACID ETHYL ESTERS 1 GM CAPSULE PO SCH (09:34)
[2017-12-16] MEDS: ASPIRIN EC 81 MG TABLET PO SCH (09:34)
[2017-12-16] MEDS: FUROSEMIDE 20 MG TABLET PO SCH ×2 (09:34→20:54)
[2017-12-16] MEDS: CLOPIDOGREL 75 MG TABLET PO SCH (09:35)
[2017-12-16] MEDS: POLYETHYLENE GLYCOL POWDER 17 GM PACK PO SCH (09:35)
[2017-12-16] MEDS: ONDANSETRON 4 MG/2 ML VIAL IV PRN (13:13)
[2017-12-16] MEDS: VANCOMYCIN INJ 1,000 MG in SODIUM CHLORIDE 0.9% 250 ML IV SCH (15:45)
[2017-12-16] MEDS: SIMVASTATIN 20 MG TABLET PO SCH (20:54)
[2017-12-16] MEDS: MONTELUKAST 10 MG TABLET PO SCH (20:54)
[2017-12-16] MEDS: GABAPENTIN 300 MG CAPSULE PO SCH (20:54)
[2017-12-16] MEDS: INSULIN GLARGINE 100 UNIT/ML SUBCUT SCH (20:55)
[2017-12-17] MEDS: SODIUM CHLORIDE 0.9% 1,000 ML IV SCH ×3 (05:43→21:39)
[2017-12-17 06:49] LABS: Basophils # 0.1 10*3/uL (0.0-0.2); Eosinophils # 0.3 10*3/uL (0.0-0.87); Eosinophils % 5.3 % (0.00-10.9); Hematocrit 28.6 VOL% (35.7-47.0); Hemoglobin 9.1 GM/DL (12.0-16.0); Immature Granulocytes % 0.4 %; Immature Granulocytes Absolute 0.02 #; Lymphocytes # 1.4 10*3/uL (1.4-4.0); Mean Corpuscular HGB Conc 31.8 GM/DL (32-36); Mean Corpuscular Hemoglobin 27 PG (27-34); Mean Corpuscular Volume 86.1 FL (87-102); Mean Platelet Volume 8.6 FL (9.6-12.0); Monocytes # 0.7 10*3/uL (0.11-0.8); Neutrophils # 2.6 10*3/uL (1.4-7.4); Neutrophils % 51.3 % (38.7-73.9); Platelet Count 400 T/CUMM (130-400); Red Blood Count 3.32 MC/CUMM (3.8-5.5); Red Cell Distribution Width 15.1 % (9.3-17.3); White Blood Count 5.1 T/CUMM (4-12)
[2017-12-17] MEDS: INSULIN LISPRO 100 UNIT/ML SUBCUT SCH ×3 (07:30→21:39)
[2017-12-17] MEDS: INSULIN REGULAR 100 UNIT/ML SUBCUT SCH ×4 (07:30→20:41)
[2017-12-17] MEDS: ASPIRIN EC 81 MG TABLET PO SCH (09:26)
[2017-12-17] MEDS: CLOPIDOGREL 75 MG TABLET PO SCH (09:27)
[2017-12-17] MEDS: CARVEDILOL 6.25 MG TABLET PO SCH (09:27)
[2017-12-17] MEDS: OMEGA 3 ACID ETHYL ESTERS 1 GM CAPSULE PO SCH (09:28)
[2017-12-17] MEDS: FUROSEMIDE 20 MG TABLET PO SCH ×2 (09:28→20:41)
[2017-12-17] MEDS: POLYETHYLENE GLYCOL POWDER 17 GM PACK PO SCH (09:29)
[2017-12-17] MEDS: ENOXAPARIN 40 MG/0.4 ML SYRINGE SUBCUT SCH (09:30)
[2017-12-17] MEDS: DOCUSATE SODIUM 100 MG CAPSULE PO SCH ×2 (09:35→20:41)
[2017-12-17] MEDS: SODIUM HYPOCHLORITE 0.25% IRRIG 473 ML BOTTLE TOP SCH ×2 (09:39→21:39)
[2017-12-17] MEDS: VANCOMYCIN INJ 1,000 MG in SODIUM CHLORIDE 0.9% 250 ML IV SCH (17:50)
[2017-12-17] MEDS: GABAPENTIN 300 MG CAPSULE PO SCH (20:40)
[2017-12-17] MEDS: SIMVASTATIN 20 MG TABLET PO SCH (20:41)
[2017-12-17] MEDS: MONTELUKAST 10 MG TABLET PO SCH (20:41)
[2017-12-17] MEDS: INSULIN GLARGINE 100 UNIT/ML SUBCUT SCH (21:39)
[2017-12-18] MEDS: SODIUM CHLORIDE 0.9% 1,000 ML IV SCH ×3 (05:37→20:22)
[2017-12-18 08:17] LABS: Calcium 9.2 MG/DL (8.5-10.1); Osmolality,Calculated 282.5 MOS/KG (273-304); Potassium 4.5 MMOL/L (3.5-5.1)
[2017-12-18] MEDS: INSULIN REGULAR 100 UNIT/ML SUBCUT SCH ×4 (08:45→20:46)
[2017-12-18] MEDS: POLYETHYLENE GLYCOL POWDER 17 GM PACK PO SCH (10:12)
[2017-12-18] MEDS: ASPIRIN EC 81 MG TABLET PO SCH (10:13)
[2017-12-18] MEDS: FUROSEMIDE 20 MG TABLET PO SCH ×2 (10:13→20:33)
[2017-12-18] MEDS: CARVEDILOL 6.25 MG TABLET PO SCH (10:13)
[2017-12-18] MEDS: DOCUSATE SODIUM 100 MG CAPSULE PO SCH ×2 (10:13→20:33)
[2017-12-18] MEDS: ENOXAPARIN 40 MG/0.4 ML SYRINGE SUBCUT SCH (10:13)
[2017-12-18] MEDS: CLOPIDOGREL 75 MG TABLET PO SCH (10:14)
[2017-12-18] MEDS: SODIUM HYPOCHLORITE 0.25% IRRIG 473 ML BOTTLE TOP SCH ×2 (10:14→20:23)
[2017-12-18] MEDS: INSULIN LISPRO 100 UNIT/ML SUBCUT SCH ×3 (10:14→20:23)
[2017-12-18] MEDS: OMEGA 3 ACID ETHYL ESTERS 1 GM CAPSULE PO SCH (10:14)
[2017-12-18] MEDS: VANCOMYCIN INJ 1,000 MG in SODIUM CHLORIDE 0.9% 250 ML IV SCH (15:37)
[2017-12-18] MEDS: INSULIN GLARGINE 100 UNIT/ML SUBCUT SCH (20:23)
[2017-12-18] MEDS: GABAPENTIN 300 MG CAPSULE PO SCH (20:34)
[2017-12-18] MEDS: MONTELUKAST 10 MG TABLET PO SCH (20:34)
[2017-12-18] MEDS: SIMVASTATIN 20 MG TABLET PO SCH (20:35)
[2017-12-19] MEDS: SODIUM CHLORIDE 0.9% 1,000 ML IV SCH ×3 (03:47→21:13)
[2017-12-19] MEDS: INSULIN REGULAR 100 UNIT/ML SUBCUT SCH ×4 (06:51→21:14)
[2017-12-19] MEDS: SODIUM HYPOCHLORITE 0.25% IRRIG 473 ML BOTTLE TOP SCH ×2 (07:07→21:15)
[2017-12-19] MEDS: ASPIRIN EC 81 MG TABLET PO SCH (08:49)
[2017-12-19] MEDS: CARVEDILOL 6.25 MG TABLET PO SCH (08:49)
[2017-12-19] MEDS: DOCUSATE SODIUM 100 MG CAPSULE PO SCH ×2 (08:49→21:15)
[2017-12-19] MEDS: ENOXAPARIN 40 MG/0.4 ML SYRINGE SUBCUT SCH (08:49)
[2017-12-19] MEDS: OMEGA 3 ACID ETHYL ESTERS 1 GM CAPSULE PO SCH (08:50)
[2017-12-19] MEDS: FUROSEMIDE 20 MG TABLET PO SCH ×2 (08:50→21:15)
[2017-12-19] MEDS: CLOPIDOGREL 75 MG TABLET PO SCH (08:50)
[2017-12-19] MEDS: POLYETHYLENE GLYCOL POWDER 17 GM PACK PO SCH (08:50)
[2017-12-19] MEDS: INSULIN LISPRO 100 UNIT/ML SUBCUT SCH ×3 (08:56→20:29)
[2017-12-19] MEDS: VANCOMYCIN INJ 1,000 MG in SODIUM CHLORIDE 0.9% 250 ML IV SCH (16:42)
[2017-12-19] MEDS: INSULIN GLARGINE 100 UNIT/ML SUBCUT SCH (20:29)
[2017-12-19] MEDS: MONTELUKAST 10 MG TABLET PO SCH (21:15)
[2017-12-19] MEDS: SIMVASTATIN 20 MG TABLET PO SCH (21:15)
[2017-12-19] MEDS: GABAPENTIN 300 MG CAPSULE PO SCH (21:16)
[2017-12-20] MEDS: SODIUM CHLORIDE 0.9% 1,000 ML IV SCH ×3 (05:52→19:44)
[2017-12-20 08:11] LABS: Calcium 9.2 MG/DL (8.5-10.1); Osmolality,Calculated 288.7 MOS/KG (273-304); Potassium 3.7 MMOL/L (3.5-5.1)
[2017-12-20] MEDS: ENOXAPARIN 40 MG/0.4 ML SYRINGE SUBCUT SCH (08:36)
[2017-12-20] MEDS: ASPIRIN EC 81 MG TABLET PO SCH (08:36)
[2017-12-20] MEDS: INSULIN REGULAR 100 UNIT/ML SUBCUT SCH ×4 (08:36→21:38)
[2017-12-20] MEDS: OMEGA 3 ACID ETHYL ESTERS 1 GM CAPSULE PO SCH (08:37)
[2017-12-20] MEDS: DOCUSATE SODIUM 100 MG CAPSULE PO SCH ×2 (08:37→21:38)
[2017-12-20] MEDS: FUROSEMIDE 20 MG TABLET PO SCH ×2 (08:37→21:41)
[2017-12-20] MEDS: CARVEDILOL 6.25 MG TABLET PO SCH (08:37)
[2017-12-20] MEDS: POLYETHYLENE GLYCOL POWDER 17 GM PACK PO SCH (08:37)
[2017-12-20] MEDS: CLOPIDOGREL 75 MG TABLET PO SCH (08:39)
[2017-12-20] MEDS: INSULIN LISPRO 100 UNIT/ML SUBCUT SCH ×3 (08:41→21:37)
[2017-12-20] MEDS: SODIUM HYPOCHLORITE 0.25% IRRIG 473 ML BOTTLE TOP SCH ×2 (09:00→21:37)
[2017-12-20] MEDS: VANCOMYCIN INJ 1,000 MG in SODIUM CHLORIDE 0.9% 250 ML IV SCH (15:53)
[2017-12-20] MEDS: INSULIN GLARGINE 100 UNIT/ML SUBCUT SCH (21:38)
[2017-12-20] MEDS: MONTELUKAST 10 MG TABLET PO SCH (21:38)
[2017-12-20] MEDS: GABAPENTIN 300 MG CAPSULE PO SCH (21:38)
[2017-12-20] MEDS: SIMVASTATIN 20 MG TABLET PO SCH (21:38)
[2017-12-21] MEDS: SODIUM CHLORIDE 0.9% 1,000 ML IV SCH ×3 (05:15→20:27)
[2017-12-21] MEDS: INSULIN REGULAR 100 UNIT/ML SUBCUT SCH ×4 (08:50→21:17)
[2017-12-21] MEDS: ASPIRIN EC 81 MG TABLET PO SCH (08:51)
[2017-12-21] MEDS: CARVEDILOL 6.25 MG TABLET PO SCH (08:51)
[2017-12-21] MEDS: FUROSEMIDE 20 MG TABLET PO SCH ×2 (08:51→21:17)
[2017-12-21] MEDS: ENOXAPARIN 40 MG/0.4 ML SYRINGE SUBCUT SCH (08:51)
[2017-12-21] MEDS: DOCUSATE SODIUM 100 MG CAPSULE PO SCH ×2 (08:51→21:17)
[2017-12-21] MEDS: POLYETHYLENE GLYCOL POWDER 17 GM PACK PO SCH (08:52)
[2017-12-21] MEDS: OMEGA 3 ACID ETHYL ESTERS 1 GM CAPSULE PO SCH (08:52)
[2017-12-21] MEDS: CLOPIDOGREL 75 MG TABLET PO SCH (08:52)
[2017-12-21] MEDS: INSULIN LISPRO 100 UNIT/ML SUBCUT SCH ×3 (09:00→20:31)
[2017-12-21] MEDS: SODIUM HYPOCHLORITE 0.25% IRRIG 473 ML BOTTLE TOP SCH ×2 (09:00→20:30)
[2017-12-21] MEDS: ONDANSETRON 4 MG/2 ML VIAL IV PRN (11:16)
[2017-12-21] MEDS: VANCOMYCIN INJ 1,000 MG in SODIUM CHLORIDE 0.9% 250 ML IV SCH (17:01)
[2017-12-21] MEDS: INSULIN GLARGINE 100 UNIT/ML SUBCUT SCH (20:31)
[2017-12-21] MEDS: MONTELUKAST 10 MG TABLET PO SCH (21:17)
[2017-12-21] MEDS: GABAPENTIN 300 MG CAPSULE PO SCH (21:17)
[2017-12-21] MEDS: SIMVASTATIN 20 MG TABLET PO SCH (21:17)
[2017-12-22] MEDS: SODIUM CHLORIDE 0.9% 1,000 ML IV SCH (06:09)
[2017-12-22 06:19] LABS: Calcium 9.3 MG/DL (8.5-10.1); Osmolality,Calculated 294.3 MOS/KG (273-304); Potassium 3.7 MMOL/L (3.5-5.1)
[2017-12-22] MEDS: INSULIN REGULAR 100 UNIT/ML SUBCUT SCH ×4 (09:31→21:15)
[2017-12-22] MEDS: CARVEDILOL 6.25 MG TABLET PO SCH (09:32)
[2017-12-22] MEDS: FUROSEMIDE 20 MG TABLET PO SCH ×2 (09:32→21:16)
[2017-12-22] MEDS: SODIUM HYPOCHLORITE 0.25% IRRIG 473 ML BOTTLE TOP SCH ×2 (09:32→21:09)
[2017-12-22] MEDS: OMEGA 3 ACID ETHYL ESTERS 1 GM CAPSULE PO SCH (09:32)
[2017-12-22] MEDS: INSULIN LISPRO 100 UNIT/ML SUBCUT SCH ×3 (09:32→21:10)
[2017-12-22] MEDS: ASPIRIN EC 81 MG TABLET PO SCH (09:32)
[2017-12-22] MEDS: CLOPIDOGREL 75 MG TABLET PO SCH (09:32)
[2017-12-22] MEDS: DOCUSATE SODIUM 100 MG CAPSULE PO SCH ×2 (09:32→21:15)
[2017-12-22] MEDS: ENOXAPARIN 40 MG/0.4 ML SYRINGE SUBCUT SCH (09:32)
[2017-12-22] MEDS: POLYETHYLENE GLYCOL POWDER 17 GM PACK PO SCH (09:33)
[2017-12-22] MEDS: VANCOMYCIN INJ 1,000 MG in SODIUM CHLORIDE 0.9% 250 ML IV SCH (17:06)
[2017-12-22] MEDS: SIMVASTATIN 20 MG TABLET PO SCH (21:15)
[2017-12-22] MEDS: MONTELUKAST 10 MG TABLET PO SCH (21:15)
[2017-12-22] MEDS: GABAPENTIN 300 MG CAPSULE PO SCH (21:15)
[2017-12-22] MEDS: INSULIN GLARGINE 100 UNIT/ML SUBCUT SCH (21:17)
[2017-12-23] MEDS ORDERED: CLINDAMYCIN INJ 900 MG in PREMIX 1 EACH IV ONE (06:00)
[2017-12-23 06:03] LABS: Basophils # 0.1 10*3/uL (0.0-0.2); Basophils % 1.2 % (0.0-0.8); Eosinophils # 0.3 10*3/uL (0.0-0.87); Eosinophils % 6.8 % (0.00-10.9); Hematocrit 28.6 VOL% (35.7-47.0); Hemoglobin 9.5 GM/DL (12.0-16.0); Immature Granulocytes % 0.6 %; Immature Granulocytes Absolute 0.03 #; Lymphocytes # 1.6 10*3/uL (1.4-4.0); Lymphocytes % 32.3 % (21.3-54.2); Mean Corpuscular HGB Conc 33.2 GM/DL (32-36); Mean Corpuscular Hemoglobin 28 PG (27-34); Mean Corpuscular Volume 83.9 FL (87-102); Mean Platelet Volume 9.2 FL (9.6-12.0); Monocytes # 0.7 10*3/uL (0.11-0.8); Monocytes % 13.1 % (1.7-12.7); Neutrophils # 2.3 10*3/uL (1.4-7.4); Platelet Count 396 T/CUMM (130-400); Red Blood Count 3.41 MC/CUMM (3.8-5.5); Red Cell Distribution Width 14.6 % (9.3-17.3)
[2017-12-23] MEDS: INSULIN LISPRO 100 UNIT/ML SUBCUT SCH ×3 (09:00→20:26)
[2017-12-23] MEDS: CARVEDILOL 6.25 MG TABLET PO SCH (09:00)
[2017-12-23] MEDS ORDERED: LIDOCAINE 1% 20 ML VIAL ONE (12:25)
[2017-12-23] MEDS ORDERED: MINERAL OIL (TOPICAL) 25 ML BOTTLE TOP ONE (12:25)
[2017-12-23] MEDS ORDERED: BUPIVACAINE MPF 0.25% 30 ML VIAL ONE (12:25)
[2017-12-23] MEDS ORDERED: PROPOFOL 200 MG/20 ML VIAL IV ONE (13:56)
[2017-12-23] MEDS ORDERED: ONDANSETRON 4 MG/2 ML VIAL ONE (13:57)
[2017-12-23] MEDS ORDERED: SEVOFLURANE 1 UNIT/15 MINUTE INH ONE (13:57)
[2017-12-23] MEDS ORDERED: fentaNYL 100 MCG/2 ML VIAL ONE (13:57)
[2017-12-23] MEDS ORDERED: MIDAZOLAM 2 MG/2 ML VIAL ONE (13:57)
[2017-12-23] MEDS: INSULIN REGULAR 100 UNIT/ML SUBCUT SCH ×4 (14:55→20:33)
[2017-12-23] MEDS: ENOXAPARIN 40 MG/0.4 ML SYRINGE SUBCUT SCH (14:56)
[2017-12-23] MEDS: SODIUM HYPOCHLORITE 0.25% IRRIG 473 ML BOTTLE TOP SCH ×2 (14:57→20:26)
[2017-12-23] MEDS: DOCUSATE SODIUM 100 MG CAPSULE PO SCH ×2 (14:57→20:34)
[2017-12-23] MEDS: ASPIRIN EC 81 MG TABLET PO SCH (14:57)
[2017-12-23] MEDS: OMEGA 3 ACID ETHYL ESTERS 1 GM CAPSULE PO SCH (14:57)
[2017-12-23] MEDS: FUROSEMIDE 20 MG TABLET PO SCH ×2 (14:57→20:34)
[2017-12-23] MEDS: POLYETHYLENE GLYCOL POWDER 17 GM PACK PO SCH (14:58)
[2017-12-23] MEDS: CLOPIDOGREL 75 MG TABLET PO SCH (14:58)
[2017-12-23] MEDS: VANCOMYCIN INJ 1,000 MG in SODIUM CHLORIDE 0.9% 250 ML IV SCH (17:37)
[2017-12-23] MEDS: INSULIN GLARGINE 100 UNIT/ML SUBCUT SCH (20:26)
[2017-12-23] MEDS: SIMVASTATIN 20 MG TABLET PO SCH (20:34)
[2017-12-23] MEDS: MONTELUKAST 10 MG TABLET PO SCH (20:34)
[2017-12-23] MEDS: GABAPENTIN 300 MG CAPSULE PO SCH (20:34)
[2017-12-24 06:19] LABS: Basophils # 0.1 10*3/uL (0.0-0.2); Basophils % 0.7 % (0.0-0.8); Eosinophils # 0.3 10*3/uL (0.0-0.87); Eosinophils % 4.2 % (0.00-10.9); Hematocrit 28.6 VOL% (35.7-47.0); Hemoglobin 9.5 GM/DL (12.0-16.0); Immature Granulocytes % 0.6 %; Immature Granulocytes Absolute 0.04 #; Lymphocytes # 1.7 10*3/uL (1.4-4.0); Lymphocytes % 23.2 % (21.3-54.2); Mean Corpuscular HGB Conc 33.2 GM/DL (32-36); Mean Corpuscular Hemoglobin 28 PG (27-34); Mean Corpuscular Volume 84.1 FL (87-102); Mean Platelet Volume 9.6 FL (9.6-12.0); Monocytes # 0.6 10*3/uL (0.11-0.8); Monocytes % 8.8 % (1.7-12.7); Neutrophils # 4.5 10*3/uL (1.4-7.4); Neutrophils % 62.5 % (38.7-73.9); Platelet Count 389 T/CUMM (130-400); White Blood Count 7.2 T/CUMM (4-12)
[2017-12-24] MEDS: INSULIN REGULAR 100 UNIT/ML SUBCUT SCH ×4 (06:58→21:21)
[2017-12-24 06:59] LABS: Calcium 8.6 MG/DL (8.5-10.1); Osmolality,Calculated 291.5 MOS/KG (273-304); Potassium 3.4 MMOL/L (3.5-5.1)
[2017-12-24] MEDS: FUROSEMIDE 20 MG TABLET PO SCH ×2 (08:36→21:18)
[2017-12-24] MEDS: CARVEDILOL 6.25 MG TABLET PO SCH (08:36)
[2017-12-24] MEDS: ENOXAPARIN 40 MG/0.4 ML SYRINGE SUBCUT SCH (08:36)
[2017-12-24] MEDS: DOCUSATE SODIUM 100 MG CAPSULE PO SCH ×2 (08:36→21:18)
[2017-12-24] MEDS: ASPIRIN EC 81 MG TABLET PO SCH (08:36)
[2017-12-24] MEDS: POLYETHYLENE GLYCOL POWDER 17 GM PACK PO SCH (08:38)
[2017-12-24] MEDS: OMEGA 3 ACID ETHYL ESTERS 1 GM CAPSULE PO SCH (08:38)
[2017-12-24] MEDS: CLOPIDOGREL 75 MG TABLET PO SCH (08:38)
[2017-12-24] MEDS: SODIUM HYPOCHLORITE 0.25% IRRIG 473 ML BOTTLE TOP SCH ×2 (09:09→21:21)
[2017-12-24] MEDS: INSULIN LISPRO 100 UNIT/ML SUBCUT SCH ×3 (09:10→21:21)
[2017-12-24] MEDS: VANCOMYCIN INJ 1,000 MG in SODIUM CHLORIDE 0.9% 250 ML IV SCH (16:59)
[2017-12-24] MEDS: MONTELUKAST 10 MG TABLET PO SCH (21:18)
[2017-12-24] MEDS: GABAPENTIN 300 MG CAPSULE PO SCH (21:18)
[2017-12-24] MEDS: SIMVASTATIN 20 MG TABLET PO SCH (21:18)
[2017-12-24] MEDS: INSULIN GLARGINE 100 UNIT/ML SUBCUT SCH (21:19)
[2017-12-25] MEDS: INSULIN REGULAR 100 UNIT/ML SUBCUT SCH ×4 (07:16→20:24)
[2017-12-25] MEDS: DOCUSATE SODIUM 100 MG CAPSULE PO SCH ×2 (08:59→20:24)
[2017-12-25] MEDS: ENOXAPARIN 40 MG/0.4 ML SYRINGE SUBCUT SCH (08:59)
[2017-12-25] MEDS: ASPIRIN EC 81 MG TABLET PO SCH (08:59)
[2017-12-25] MEDS: CLOPIDOGREL 75 MG TABLET PO SCH (09:00)
[2017-12-25] MEDS: POLYETHYLENE GLYCOL POWDER 17 GM PACK PO SCH (09:00)
[2017-12-25] MEDS: OMEGA 3 ACID ETHYL ESTERS 1 GM CAPSULE PO SCH (09:00)
[2017-12-25] MEDS: FUROSEMIDE 20 MG TABLET PO SCH ×2 (09:00→20:24)
[2017-12-25] MEDS: CARVEDILOL 6.25 MG TABLET PO SCH (09:00)
[2017-12-25] MEDS: INSULIN LISPRO 100 UNIT/ML SUBCUT SCH ×3 (09:01→20:21)
[2017-12-25] MEDS: SODIUM HYPOCHLORITE 0.25% IRRIG 473 ML BOTTLE TOP SCH ×2 (09:07→20:21)
[2017-12-25] MEDS ORDERED: ePHEDrine 50 MG/ML AMP ONE (09:56)
[2017-12-25] MEDS: VANCOMYCIN INJ 1,000 MG in SODIUM CHLORIDE 0.9% 250 ML IV SCH (17:24)
[2017-12-25] MEDS: INSULIN GLARGINE 100 UNIT/ML SUBCUT SCH (20:21)
[2017-12-25] MEDS: MONTELUKAST 10 MG TABLET PO SCH (20:24)
[2017-12-25] MEDS: SIMVASTATIN 20 MG TABLET PO SCH (20:24)
[2017-12-25] MEDS: GABAPENTIN 300 MG CAPSULE PO SCH (20:24)
[2017-12-26] MEDS: ENOXAPARIN 40 MG/0.4 ML SYRINGE SUBCUT SCH (09:48)
[2017-12-26] MEDS: CARVEDILOL 6.25 MG TABLET PO SCH (09:49)
[2017-12-26] MEDS: POLYETHYLENE GLYCOL POWDER 17 GM PACK PO SCH (09:49)
[2017-12-26] MEDS: DOCUSATE SODIUM 100 MG CAPSULE PO SCH ×2 (09:49→20:40)
[2017-12-26] MEDS: CLOPIDOGREL 75 MG TABLET PO SCH (09:49)
[2017-12-26] MEDS: OMEGA 3 ACID ETHYL ESTERS 1 GM CAPSULE PO SCH (09:49)
[2017-12-26] MEDS: FUROSEMIDE 20 MG TABLET PO SCH ×2 (09:49→20:39)
[2017-12-26] MEDS: ASPIRIN EC 81 MG TABLET PO SCH (09:49)
[2017-12-26] MEDS: SODIUM HYPOCHLORITE 0.25% IRRIG 473 ML BOTTLE TOP SCH ×2 (09:50→20:41)
[2017-12-26] MEDS: INSULIN REGULAR 100 UNIT/ML SUBCUT SCH ×4 (10:14→20:48)
[2017-12-26] MEDS: INSULIN LISPRO 100 UNIT/ML SUBCUT SCH ×3 (10:15→20:42)
[2017-12-26] MEDS: VANCOMYCIN INJ 1,000 MG in SODIUM CHLORIDE 0.9% 250 ML IV SCH (17:49)
[2017-12-26] MEDS: SIMVASTATIN 20 MG TABLET PO SCH (20:39)
[2017-12-26] MEDS: GABAPENTIN 300 MG CAPSULE PO SCH (20:40)
[2017-12-26] MEDS: MONTELUKAST 10 MG TABLET PO SCH (20:40)
[2017-12-26] MEDS: INSULIN GLARGINE 100 UNIT/ML SUBCUT SCH (20:43)
[2017-12-27] MEDS: POLYETHYLENE GLYCOL POWDER 17 GM PACK PO SCH (08:18)
[2017-12-27] MEDS: ENOXAPARIN 40 MG/0.4 ML SYRINGE SUBCUT SCH (08:18)
[2017-12-27] MEDS: CLOPIDOGREL 75 MG TABLET PO SCH (08:18)
[2017-12-27] MEDS: INSULIN REGULAR 100 UNIT/ML SUBCUT SCH ×4 (08:18→20:57)
[2017-12-27] MEDS: SODIUM HYPOCHLORITE 0.25% IRRIG 473 ML BOTTLE TOP SCH ×2 (08:19→20:59)
[2017-12-27] MEDS: FUROSEMIDE 20 MG TABLET PO SCH ×2 (08:19→20:58)
[2017-12-27] MEDS: DOCUSATE SODIUM 100 MG CAPSULE PO SCH ×2 (08:19→20:58)
[2017-12-27] MEDS: ASPIRIN EC 81 MG TABLET PO SCH (08:19)
[2017-12-27] MEDS: CARVEDILOL 6.25 MG TABLET PO SCH (08:19)
[2017-12-27] MEDS: INSULIN LISPRO 100 UNIT/ML SUBCUT SCH ×3 (09:07→21:00)
[2017-12-27] MEDS: OMEGA 3 ACID ETHYL ESTERS 1 GM CAPSULE PO SCH (09:07)
[2017-12-27] MEDS: VANCOMYCIN INJ 1,000 MG in SODIUM CHLORIDE 0.9% 250 ML IV SCH (17:25)
[2017-12-27] MEDS: MONTELUKAST 10 MG TABLET PO SCH (20:57)
[2017-12-27] MEDS: SIMVASTATIN 20 MG TABLET PO SCH (20:57)
[2017-12-27] MEDS: GABAPENTIN 300 MG CAPSULE PO SCH (20:58)
[2017-12-27] MEDS: INSULIN GLARGINE 100 UNIT/ML SUBCUT SCH (21:00)
[2017-12-28] MEDS: DOCUSATE SODIUM 100 MG CAPSULE PO SCH ×2 (10:37→20:56)
[2017-12-28] MEDS: CLOPIDOGREL 75 MG TABLET PO SCH (10:37)
[2017-12-28] MEDS: INSULIN REGULAR 100 UNIT/ML SUBCUT SCH ×4 (10:37→20:57)
[2017-12-28] MEDS: ENOXAPARIN 40 MG/0.4 ML SYRINGE SUBCUT SCH (10:37)
[2017-12-28] MEDS: POLYETHYLENE GLYCOL POWDER 17 GM PACK PO SCH (10:37)
[2017-12-28] MEDS: SODIUM HYPOCHLORITE 0.25% IRRIG 473 ML BOTTLE TOP SCH ×2 (10:37→20:57)
[2017-12-28] MEDS: CARVEDILOL 6.25 MG TABLET PO SCH (10:37)
[2017-12-28] MEDS: FUROSEMIDE 20 MG TABLET PO SCH ×2 (10:37→20:56)
[2017-12-28] MEDS: ASPIRIN EC 81 MG TABLET PO SCH (10:37)
[2017-12-28] MEDS: OMEGA 3 ACID ETHYL ESTERS 1 GM CAPSULE PO SCH (10:37)
[2017-12-28] MEDS: INSULIN LISPRO 100 UNIT/ML SUBCUT SCH ×3 (11:13→20:57)
[2017-12-28] MEDS: VANCOMYCIN INJ 1,000 MG in SODIUM CHLORIDE 0.9% 250 ML IV SCH (16:34)
[2017-12-28] MEDS: SIMVASTATIN 20 MG TABLET PO SCH (20:56)
[2017-12-28] MEDS: GABAPENTIN 300 MG CAPSULE PO SCH (20:56)
[2017-12-28] MEDS: MONTELUKAST 10 MG TABLET PO SCH (20:56)
[2017-12-28] MEDS: INSULIN GLARGINE 100 UNIT/ML SUBCUT SCH (20:57)
[2017-12-29] MEDS: SODIUM HYPOCHLORITE 0.25% IRRIG 473 ML BOTTLE TOP SCH (09:00)
[2017-12-29] MEDS: INSULIN REGULAR 100 UNIT/ML SUBCUT SCH ×2 (09:30→11:52)
[2017-12-29] MEDS: ENOXAPARIN 40 MG/0.4 ML SYRINGE SUBCUT SCH (09:31)
[2017-12-29] MEDS: DOCUSATE SODIUM 100 MG CAPSULE PO SCH (09:31)
[2017-12-29] MEDS: CARVEDILOL 6.25 MG TABLET PO SCH (09:31)
[2017-12-29] MEDS: ASPIRIN EC 81 MG TABLET PO SCH (09:31)
[2017-12-29] MEDS: OMEGA 3 ACID ETHYL ESTERS 1 GM CAPSULE PO SCH (09:32)
[2017-12-29] MEDS: CLOPIDOGREL 75 MG TABLET PO SCH (09:32)
[2017-12-29] MEDS: POLYETHYLENE GLYCOL POWDER 17 GM PACK PO SCH (09:32)
[2017-12-29] MEDS: FUROSEMIDE 20 MG TABLET PO SCH (09:32)
[2017-12-29] MEDS: INSULIN LISPRO 100 UNIT/ML SUBCUT SCH (09:35)
[2017-12-29] MEDS ORDERED: BACITRACIN OINT 0.9 GM PACK TOP SCH (13:00)
[2017-12-29 14:35] VITALS: BP 122/67
== END 2017-12-29 14:50 | disposition home or self-care (01) | DRG 240 ==
LOC: N.OR 07:02 → N.SDSINP 10:02 → N.3E 15:15
PROVIDERS: ADMIT Surgery; ATTEND Surgery

== ENCOUNTER 2020-03-02 13:10 | Inpatient (IN) ==
[2020-03-02] MEDS ORDERED: FUROSEMIDE 100 MG/10 ML VIAL IV STA (13:28)
[2020-03-02 13:40] LABS: Basophils % 0.6 % (0.0-0.8); Eosinophils # 0.1 10*3/uL (0.0-0.87); Eosinophils % 1.3 % (0.00-10.9); Hematocrit 28.1 VOL% (35.7-47.0); Hemoglobin 8.8 GM/DL (12.0-16.0); Immature Granulocytes % 0.7 %; Immature Granulocytes Absolute 0.05 #; Lymphocytes # 0.6 10*3/uL (1.4-4.0); Lymphocytes % 7.9 % (21.3-54.2); Mean Corpuscular HGB Conc 31.3 GM/DL (32-36); Mean Corpuscular Volume 86.5 FL (87-102); Mean Platelet Volume 9.2 FL (9.6-12.0); Monocytes % 10.4 % (1.7-12.7); Neutrophils % 79.1 % (38.7-73.9); Platelet Count 153 T/CUMM (130-400); Red Blood Count 3.25 MC/CUMM (3.8-5.5); Red Cell Distribution Width 17.1 % (9.3-17.3); White Blood Count 7.1 T/CUMM (4-12)
[2020-03-02 13:57] LABS: INR 1.3; PT Patient Result 13.7 SECS (9.8-11.9); Partial Thromboplastin Time 33.1 SECS (23.9-33.8)
[2020-03-02 14:23] LABS: Alanine Aminotransferase < 9 U/L (13-56); Albumin 2.4 G/DL (3.4-5.0); Alkaline Phosphatase 88 U/L (45-117); Aspartate Amino Transferase 19 U/L (0-37); Blood Urea Nitrogen 58 MG/DL (7-18); Calcium 8.3 MG/DL (8.5-10.1); Estimated Glom Filtration Rate 9 ML/MIN; Glucose 154 MG/DL (74-106); Osmolality,Calculated 282.5 MOS/KG (273-304); Total Protein 7.2 G/DL (6.4-8.3)
[2020-03-02] MEDS ORDERED: ACETAMINOPHEN 325 MG TABLET PO PRN (15:55)
[2020-03-02] MEDS ORDERED: hydrALAZINE 20 MG/1 ML VIAL IV PRN (15:55)
[2020-03-02] MEDS ORDERED: GLUCAGON 1 MG VIAL IM PRN (15:55)
[2020-03-02] MEDS ORDERED: ONDANSETRON 4 MG/2 ML VIAL IV PRN (15:55)
[2020-03-02] MEDS ORDERED: DOCUSATE SODIUM 100 MG CAPSULE PO PRN (15:55)
[2020-03-02] MEDS ORDERED: MAGNESIUM SULF RIDER 4 GM in PREMIX 1 EACH IV PRN (16:03)
[2020-03-02] MEDS ORDERED: MAGNESIUM SULF RIDER 2 GM in PREMIX 1 EACH IV PRN (16:03)
[2020-03-02 17:41] LABS: Risk Ratio 1.47; Thyroid Stimulating Hormone 2.56 uIU/ml (0.358-3.74); VLDL CHOLESTEROL 14.8 MG/DL
[2020-03-02] MEDS: carvediloL 3.125 MG TABLET PO SCH (18:28)
[2020-03-02] MEDS: HEPARIN 5,000 UNIT/1 ML VIAL SUBCUT SCH (18:28)
[2020-03-02] MEDS: AZITHROMYCIN INJ 500 MG in SODIUM CHLORIDE 0.9% 250 ML IV SCH (18:29)
[2020-03-02] MEDS: ALBUTEROL 2.5 MG/3 ML NEB RESP TX SCH (18:53)
[2020-03-02] MEDS: POTASSIUM CHLORIDE 20 MEQ TABLET PO SCH (21:31)
[2020-03-02] MEDS: GLIMEPIRIDE 4 MG TABLET PO SCH (21:31)
[2020-03-02] MEDS: ROSUVASTATIN 20 MG TABLET PO SCH (21:31)
[2020-03-02] MEDS: guaiFENesin/DM ER 600-30 MG TABLET PO SCH (21:31)
[2020-03-03] MEDS: HEPARIN 5,000 UNIT/1 ML VIAL SUBCUT SCH ×3 (02:05→17:08)
[2020-03-03] MEDS: ALBUTEROL 2.5 MG/3 ML NEB RESP TX SCH ×4 (02:31→20:29)
[2020-03-03 05:18] LABS: Basophils % 0.4 % (0.0-0.8); Eosinophils # 0.1 10*3/uL (0.0-0.87); Eosinophils % 0.5 % (0.00-10.9); Hematocrit 34.9 VOL% (35.7-47.0); Hemoglobin 11.1 GM/DL (12.0-16.0); Immature Granulocytes % 0.4 %; Immature Granulocytes Absolute 0.04 #; Lymphocytes # 0.9 10*3/uL (1.4-4.0); Lymphocytes % 9.4 % (21.3-54.2); Mean Corpuscular HGB Conc 31.8 GM/DL (32-36); Mean Corpuscular Volume 85.5 FL (87-102); Mean Platelet Volume 9.1 FL (9.6-12.0); Monocytes % 11.3 % (1.7-12.7); NRBC # 0.03 10*3/uL; Platelet Count 176 T/CUMM (130-400); Red Blood Count 4.08 MC/CUMM (3.8-5.5); Red Cell Distribution Width 17.2 % (9.3-17.3)
[2020-03-03 05:44] LABS: Calcium 8.5 MG/DL (8.5-10.1); Osmolality,Calculated 287.8 MOS/KG (273-304)
[2020-03-03] MEDS: DEXTROSE 50% 25 GM/50 ML VIAL IV PRN (08:19)
[2020-03-03] MEDS ORDERED: LOSARTAN 25 MG TABLET PO SCH (09:00)
[2020-03-03] MEDS: guaiFENesin/DM ER 600-30 MG TABLET PO SCH ×2 (09:49→20:06)
[2020-03-03] MEDS: POTASSIUM CHLORIDE 20 MEQ TABLET PO SCH ×2 (09:49→20:06)
[2020-03-03] MEDS: PANTOPRAZOLE 40 MG TABLET PO SCH (09:50)
[2020-03-03] MEDS: carvediloL 3.125 MG TABLET PO SCH ×2 (09:50→17:01)
[2020-03-03] MEDS: FUROSEMIDE 40 MG/4 ML VIAL IV SCH ×2 (09:51→15:55)
[2020-03-03] MEDS: GLIMEPIRIDE 4 MG TABLET PO SCH (09:58)
[2020-03-03] MEDS: ASPIRIN EC 81 MG TABLET PO SCH (10:13)
[2020-03-03] MEDS: cefTRIAXone 1,000 MG in SYRINGE 1 EACH IV SCH (10:13)
[2020-03-03] MEDS: MUPIROCIN 2% OINT 22 GM TUBE TOP SCH (15:07)
[2020-03-03] MEDS: GLIMEPIRIDE 2 MG TABLET PO SCH (17:01)
[2020-03-03] MEDS: AZITHROMYCIN INJ 500 MG in SODIUM CHLORIDE 0.9% 250 ML IV SCH (17:03)
[2020-03-03] MEDS: ROSUVASTATIN 20 MG TABLET PO SCH (20:06)
[2020-03-04] MEDS: HEPARIN 5,000 UNIT/1 ML VIAL SUBCUT SCH ×3 (00:36→17:09)
[2020-03-04] MEDS: ALBUTEROL 2.5 MG/3 ML NEB RESP TX SCH ×4 (01:45→19:34)
[2020-03-04 05:54] LABS: Basophils % 0.3 % (0.0-0.8); Eosinophils # 0.2 10*3/uL (0.0-0.87); Eosinophils % 2.7 % (0.00-10.9); Hematocrit 34.5 VOL% (35.7-47.0); Hemoglobin 10.9 GM/DL (12.0-16.0); Immature Granulocytes % 0.3 %; Immature Granulocytes Absolute 0.03 #; Lymphocytes % 10.7 % (21.3-54.2); Mean Corpuscular HGB Conc 31.6 GM/DL (32-36); Mean Corpuscular Volume 86.7 FL (87-102); Mean Platelet Volume 9.3 FL (9.6-12.0); Monocytes % 11.2 % (1.7-12.7); NRBC # 0.02 10*3/uL; Neutrophils % 74.8 % (38.7-73.9); Platelet Count 169 T/CUMM (130-400); Red Blood Count 3.98 MC/CUMM (3.8-5.5); Red Cell Distribution Width 17.2 % (9.3-17.3); White Blood Count 8.9 T/CUMM (4-12)
[2020-03-04 06:06] LABS: Calcium 8.1 MG/DL (8.5-10.1); Osmolality,Calculated 288.8 MOS/KG (273-304)
[2020-03-04 06:12] LABS: Troponin I 0.082 NG/ML (0.00-0.045)
[2020-03-04] MEDS: GLIMEPIRIDE 4 MG TABLET PO SCH (08:00)
[2020-03-04] MEDS: POTASSIUM CHLORIDE 20 MEQ TABLET PO SCH ×2 (10:34→20:15)
[2020-03-04] MEDS: carvediloL 3.125 MG TABLET PO SCH ×2 (10:34→17:08)
[2020-03-04] MEDS: PANTOPRAZOLE 40 MG TABLET PO SCH (10:34)
[2020-03-04] MEDS: ASPIRIN EC 81 MG TABLET PO SCH (10:35)
[2020-03-04] MEDS: guaiFENesin/DM ER 600-30 MG TABLET PO SCH ×2 (10:35→20:15)
[2020-03-04] MEDS: cefTRIAXone 1,000 MG in SYRINGE 1 EACH IV SCH (10:35)
[2020-03-04] MEDS: MUPIROCIN 2% OINT 22 GM TUBE TOP SCH (10:37)
[2020-03-04] MEDS: FUROSEMIDE 40 MG/4 ML VIAL IV SCH ×2 (11:33→15:18)
[2020-03-04] MEDS: LOSARTAN 50 MG TABLET PO SCH (15:18)
[2020-03-04] MEDS: GLIMEPIRIDE 2 MG TABLET PO SCH (17:09)
[2020-03-04] MEDS: AZITHROMYCIN INJ 500 MG in SODIUM CHLORIDE 0.9% 250 ML IV SCH (17:09)
[2020-03-04] MEDS: ROSUVASTATIN 20 MG TABLET PO SCH (20:15)
[2020-03-05] MEDS: HEPARIN 5,000 UNIT/1 ML VIAL SUBCUT SCH ×3 (00:44→17:41)
[2020-03-05] MEDS: ALBUTEROL 2.5 MG/3 ML NEB RESP TX SCH ×4 (01:48→19:51)
[2020-03-05 05:31] LABS: Basophils % 0.4 % (0.0-0.8); Eosinophils # 0.3 10*3/uL (0.0-0.87); Eosinophils % 3.8 % (0.00-10.9); Hematocrit 33.3 VOL% (35.7-47.0); Hemoglobin 10.5 GM/DL (12.0-16.0); Immature Granulocytes % 0.3 %; Immature Granulocytes Absolute 0.02 #; Lymphocytes # 1.2 10*3/uL (1.4-4.0); Lymphocytes % 17.1 % (21.3-54.2); Mean Corpuscular HGB Conc 31.5 GM/DL (32-36); Mean Platelet Volume 9.6 FL (9.6-12.0); Monocytes % 10.1 % (1.7-12.7); Neutrophils % 68.3 % (38.7-73.9); Platelet Count 150 T/CUMM (130-400); Red Blood Count 3.87 MC/CUMM (3.8-5.5); Red Cell Distribution Width 17.4 % (9.3-17.3); White Blood Count 6.8 T/CUMM (4-12)
[2020-03-05 05:51] LABS: Calcium 7.7 MG/DL (8.5-10.1); Osmolality,Calculated 288.8 MOS/KG (273-304)
[2020-03-05] MEDS: carvediloL 3.125 MG TABLET PO SCH ×2 (08:51→17:40)
[2020-03-05] MEDS: ASPIRIN EC 81 MG TABLET PO SCH (08:51)
[2020-03-05] MEDS: MUPIROCIN 2% OINT 22 GM TUBE TOP SCH (08:51)
[2020-03-05] MEDS: guaiFENesin/DM ER 600-30 MG TABLET PO SCH ×2 (08:52→20:30)
[2020-03-05] MEDS: LOSARTAN 50 MG TABLET PO SCH (08:52)
[2020-03-05] MEDS: POTASSIUM CHLORIDE 20 MEQ TABLET PO SCH ×2 (08:52→20:29)
[2020-03-05] MEDS: FUROSEMIDE 40 MG/4 ML VIAL IV SCH (08:52)
[2020-03-05] MEDS: PANTOPRAZOLE 40 MG TABLET PO SCH (08:52)
[2020-03-05] MEDS: cefTRIAXone 1,000 MG in SYRINGE 1 EACH IV SCH (08:57)
[2020-03-05] MEDS: GLIMEPIRIDE 4 MG TABLET PO SCH (09:12)
[2020-03-05] MEDS: AZITHROMYCIN INJ 500 MG in SODIUM CHLORIDE 0.9% 250 ML IV SCH (17:41)
[2020-03-05] MEDS: ROSUVASTATIN 20 MG TABLET PO SCH (20:29)
[2020-03-06] MEDS: ALBUTEROL 2.5 MG/3 ML NEB RESP TX SCH ×2 (00:08→08:46)
[2020-03-06] MEDS: HEPARIN 5,000 UNIT/1 ML VIAL SUBCUT SCH ×3 (01:30→17:02)
[2020-03-06 06:06] LABS: Bacteria,Urine Occasional /HPF (Few); Bilirubin,Urine Negative (Negative); Blood, Urine Negative (Negative); Glucose,Urine (UA) 50 mg/dL (Negative); Hyaline Casts,Urine 3 /LPF (0-3); Ketones,Urine Negative (Negative); Nitrite,Urine Negative (Negative); Protein,Urine 100 MG/DL; RBC,Urine 3 /HPF (0-4); Squamous Epithelial Cell,Urine Few /HPF (0-10); Urine Appearance Slightly Hazy (Clear); Urine Color Yellow (Yellow); Urine Specific Gravity 1.014 (1.001-1.035); Urine Urobilinogen < 2.0 EU/DL (0.2-1.0); WBC,Urine 4 /HPF (0-6)
[2020-03-06 06:17] LABS: Basophils % 0.5 % (0.0-0.8); Eosinophils # 0.3 10*3/uL (0.0-0.87); Eosinophils % 4.7 % (0.00-10.9); Hematocrit 35.3 VOL% (35.7-47.0); Immature Granulocytes % 0.4 %; Immature Granulocytes Absolute 0.03 #; Lymphocytes # 1.2 10*3/uL (1.4-4.0); Lymphocytes % 16.3 % (21.3-54.2); Mean Corpuscular HGB Conc 31.2 GM/DL (32-36); Mean Corpuscular Volume 86.7 FL (87-102); Mean Platelet Volume 9.5 FL (9.6-12.0); Monocytes % 11.5 % (1.7-12.7); NRBC # 0.03 10*3/uL; Neutrophils % 66.6 % (38.7-73.9); Platelet Count 148 T/CUMM (130-400); Red Blood Count 4.07 MC/CUMM (3.8-5.5); Red Cell Distribution Width 17.5 % (9.3-17.3); White Blood Count 7.3 T/CUMM (4-12)
[2020-03-06 06:39] LABS: Alanine Aminotransferase < 9 U/L (13-56); Albumin 2.1 G/DL (3.4-5.0); Alkaline Phosphatase 102 U/L (45-117); Aspartate Amino Transferase 18 U/L (0-37); Blood Urea Nitrogen 65 MG/DL (7-18); Calcium 8.1 MG/DL (8.5-10.1); Estimated Glom Filtration Rate 8 ML/MIN; Glucose 60 MG/DL (74-106); Total Protein 6.6 G/DL (6.4-8.3)
[2020-03-06] MEDS: DEXTROSE 50% 25 GM/50 ML VIAL IV PRN (08:56)
[2020-03-06] MEDS ORDERED: ALBUTEROL/IPRATROPIUM 3 ML NEB RESP TX PRN (09:12)
[2020-03-06] MEDS: LOSARTAN 50 MG TABLET PO SCH (09:52)
[2020-03-06] MEDS: POTASSIUM CHLORIDE 20 MEQ TABLET PO SCH (09:53)
[2020-03-06] MEDS: MONTELUKAST 10 MG TABLET PO SCH (09:53)
[2020-03-06] MEDS: carvediloL 3.125 MG TABLET PO SCH ×2 (09:53→17:00)
[2020-03-06] MEDS: ASPIRIN EC 81 MG TABLET PO SCH ×2 (09:54→13:52)
[2020-03-06] MEDS: cefTRIAXone 1,000 MG in SYRINGE 1 EACH IV SCH (09:55)
[2020-03-06] MEDS: PANTOPRAZOLE 40 MG TABLET PO SCH (09:59)
[2020-03-06] MEDS: FUROSEMIDE 40 MG/4 ML VIAL IV SCH (10:01)
[2020-03-06] MEDS: MUPIROCIN 2% OINT 22 GM TUBE TOP SCH (10:08)
[2020-03-06] MEDS: ALBUTEROL/IPRATROPIUM 3 ML NEB RESP TX SCH ×2 (13:39→19:24)
[2020-03-06] MEDS: guaiFENesin/DM ER 600-30 MG TABLET PO SCH (14:54)
[2020-03-06] MEDS ORDERED: ISOSORBIDE MONONITRATE 30 MG TABLET PO SCH (15:30)
[2020-03-06] MEDS: hydrALAZINE 25 MG TABLET PO SCH ×2 (17:09→20:38)
[2020-03-06] MEDS: AZITHROMYCIN INJ 500 MG in SODIUM CHLORIDE 0.9% 250 ML IV SCH (17:25)
[2020-03-06] MEDS: ROSUVASTATIN 20 MG TABLET PO SCH (20:38)
[2020-03-07] MEDS: ALBUTEROL/IPRATROPIUM 3 ML NEB RESP TX SCH ×2 (01:19→07:45)
[2020-03-07] MEDS: HEPARIN 5,000 UNIT/1 ML VIAL SUBCUT SCH ×2 (01:22→10:50)
[2020-03-07 02:42] LABS: Amorphous Crystals,Urine Few /HPF (Few); Bilirubin,Urine Negative (Negative); Blood, Urine Negative (Negative); Glucose,Urine (UA) 150 mg/dL (Negative); Ketones,Urine Negative (Negative); Mucus,Urine Occasional /LPF (Occasional); Nitrite,Urine Negative (Negative); Protein,Urine 100 MG/DL; RBC,Urine 4 /HPF (0-4); Squamous Epithelial Cell,Urine Occasional /HPF (0-10); Urine Appearance CLEAR (Clear); Urine Color Yellow (Yellow); Urine Specific Gravity 1.013 (1.001-1.035); Urine Urobilinogen < 2.0 EU/DL (0.2-1.0); WBC,Urine <1 /HPF (0-6)
[2020-03-07 06:38] LABS: Basophils % 0.6 % (0.0-0.8); Eosinophils # 0.3 10*3/uL (0.0-0.87); Hematocrit 33.7 VOL% (35.7-47.0); Hemoglobin 10.6 GM/DL (12.0-16.0); Immature Granulocytes % 0.6 %; Immature Granulocytes Absolute 0.04 #; Lymphocytes # 0.9 10*3/uL (1.4-4.0); Lymphocytes % 14.1 % (21.3-54.2); Mean Corpuscular HGB Conc 31.5 GM/DL (32-36); Mean Corpuscular Volume 85.8 FL (87-102); Mean Platelet Volume 9.6 FL (9.6-12.0); Monocytes % 10.8 % (1.7-12.7); NRBC # 0.02 10*3/uL; Neutrophils % 69.9 % (38.7-73.9); Platelet Count 137 T/CUMM (130-400); Red Blood Count 3.93 MC/CUMM (3.8-5.5); Red Cell Distribution Width 17.7 % (9.3-17.3); White Blood Count 6.3 T/CUMM (4-12)
[2020-03-07 06:55] LABS: Calcium 8.1 MG/DL (8.5-10.1); Osmolality,Calculated 287.1 MOS/KG (273-304)
[2020-03-07] MEDS ORDERED: ISOSORBIDE MONONITRATE 30 MG TABLET PO SCH (09:00)
[2020-03-07] MEDS: hydrALAZINE 25 MG TABLET PO SCH (09:12)
[2020-03-07] MEDS: ASPIRIN EC 81 MG TABLET PO SCH (09:12)
[2020-03-07] MEDS: MONTELUKAST 10 MG TABLET PO SCH (09:12)
[2020-03-07] MEDS: PANTOPRAZOLE 40 MG TABLET PO SCH (09:12)
[2020-03-07] MEDS: MUPIROCIN 2% OINT 22 GM TUBE TOP SCH (09:13)
[2020-03-07] MEDS: carvediloL 3.125 MG TABLET PO SCH (09:13)
[2020-03-07] MEDS: FUROSEMIDE 40 MG/4 ML VIAL IV SCH (09:14)
[2020-03-07] MEDS: cefTRIAXone 1,000 MG in SYRINGE 1 EACH IV SCH (09:18)
[2020-03-07] MEDS ORDERED: DORNASE ALFA 2.5 MG/2.5 ML VIAL RESP TX SCH (11:00)
[2020-03-07 12:47] VITALS: BP 158/77
[2020-03-08] MEDS ORDERED: ERGOCALCIFEROL 50,000 UNIT CAPSULE PO SCH (09:00)
== END 2020-03-07 14:04 | disposition home or self-care (01) | DRG 291 ==
LOC: EDBD → EDUNIT# → N.ED 13:10 → N.EDINP 15:55 → N.TELEN 17:20
PROVIDERS: ADMIT Internal Medicine; ATTEND Internal Medicine

== ENCOUNTER 2020-05-25 06:53 | Inpatient (IN) ==
[2020-05-24 14:58] LABS: Basophils % 0.6 % (0.0-0.8); Eosinophils % 0.6 % (0.00-10.9); Hematocrit 33.6 VOL% (35.7-47.0); Hemoglobin 10.6 GM/DL (12.0-16.0); Immature Granulocytes % 0.4 %; Immature Granulocytes Absolute 0.02 #; Lymphocytes # 0.6 10*3/uL (1.4-4.0); Lymphocytes % 11.6 % (21.3-54.2); Mean Corpuscular HGB Conc 31.5 GM/DL (32-36); Mean Platelet Volume 10.8 FL (9.6-12.0); Monocytes % 9.3 % (1.7-12.7); NRBC # 0.02 10*3/uL; Neutrophils % 77.5 % (38.7-73.9); Platelet Count 127 T/CUMM (130-400); Red Cell Distribution Width 16.9 % (9.3-17.3); White Blood Count 5.1 T/CUMM (4-12)
[2020-05-24 15:21] LABS: Calcium 7.8 MG/DL (8.5-10.1); Osmolality,Calculated 312.5 MOS/KG (273-304); Potassium 2.7 MMOL/L (3.5-5.1)
[2020-05-25 07:38] LABS: Hematocrit 32.6 VOL% (35.7-47.0); Hemoglobin 10.3 GM/DL (12.0-16.0)
[2020-05-25] MEDS: SODIUM CHLORIDE 0.9% 250 ML IV SCH ×2 (08:45→17:40)
[2020-05-25] MEDS ORDERED: hydrALAZINE 20 MG/1 ML VIAL IV PRN (11:14)
[2020-05-25] MEDS ORDERED: ALBUTEROL 2.5 MG/3 ML NEB RESP TX PRN (11:14)
[2020-05-25] MEDS ORDERED: DEXTROSE 50% 25 GM/50 ML VIAL IV PRN (11:14)
[2020-05-25] MEDS ORDERED: ONDANSETRON 4 MG/2 ML VIAL IV PRN (11:14)
[2020-05-25] MEDS ORDERED: GLUCAGON 1 MG VIAL IM PRN (11:14)
[2020-05-25] MEDS ORDERED: guaiFENesin/DM ER 600-30 MG TABLET PO PRN (11:14)
[2020-05-25] MEDS ORDERED: POTASSIUM CHLORIDE 20 MEQ TABLET PO ONE ×2 (11:18→16:45)
[2020-05-25] MEDS: hydrALAZINE 25 MG TABLET PO SCH ×2 (16:19→21:15)
[2020-05-25] MEDS: INSULIN LISPRO 100 UNIT/ML SUBCUT SCH ×2 (18:02→21:16)
[2020-05-25] MEDS: MONTELUKAST 10 MG TABLET PO SCH (21:15)
[2020-05-25] MEDS: carvediloL 3.125 MG TABLET PO SCH (21:15)
[2020-05-25] MEDS: ROSUVASTATIN 20 MG TABLET PO SCH (21:15)
[2020-05-26 05:45] LABS: Basophils # 0.1 10*3/uL (0.0-0.2); Eosinophils % 0.6 % (0.00-10.9); Hematocrit 32.1 VOL% (35.7-47.0); Hemoglobin 10.1 GM/DL (12.0-16.0); Immature Granulocytes % 0.2 %; Immature Granulocytes Absolute 0.01 #; Lymphocytes # 0.6 10*3/uL (1.4-4.0); Lymphocytes % 11.9 % (21.3-54.2); Mean Corpuscular HGB Conc 31.5 GM/DL (32-36); Mean Corpuscular Volume 82.1 FL (87-102); Mean Platelet Volume 10.9 FL (9.6-12.0); Neutrophils % 76.3 % (38.7-73.9); Platelet Count 125 T/CUMM (130-400); Red Blood Count 3.91 MC/CUMM (3.8-5.5); Red Cell Distribution Width 17.2 % (9.3-17.3); White Blood Count 5.1 T/CUMM (4-12)
[2020-05-26] MEDS: ALBUTEROL/IPRATROPIUM 3 ML NEB RESP TX SCH ×5 (05:58→19:16)
[2020-05-26 06:11] LABS: Calcium 7.7 MG/DL (8.5-10.1); Osmolality,Calculated 314.1 MOS/KG (273-304); Potassium 3.3 MMOL/L (3.5-5.1)
[2020-05-26 06:20] LABS: Calcium 7.8 MG/DL (8.5-10.1); Osmolality,Calculated 313.2 MOS/KG (273-304); Potassium 3.3 MMOL/L (3.5-5.1); Risk Ratio 2.73; Thyroid Stimulating Hormone 3.14 uIU/ml (0.358-3.74); VLDL CHOLESTEROL 24.6 MG/DL
[2020-05-26] MEDS ORDERED: BUPIVACAINE MPF 0.25% 30 ML VIAL ONE (06:24)
[2020-05-26] MEDS ORDERED: LIDOCAINE 1%/EPI INJ 20 ML VIAL ONE (06:24)
[2020-05-26] MEDS ORDERED: HEPARIN 5,000 UNIT/1 ML VIAL ONE (06:24)
[2020-05-26] MEDS ORDERED: propofoL 200 MG/20 ML VIAL IV ONE (06:32)
[2020-05-26] MEDS ORDERED: MIDAZOLAM 2 MG/2 ML VIAL ONE (06:32)
[2020-05-26] MEDS ORDERED: ETOMIDATE 40 MG/20 ML VIAL IV ONE (06:32)
[2020-05-26] MEDS ORDERED: ONDANSETRON 4 MG/2 ML VIAL ONE (06:32)
[2020-05-26] MEDS ORDERED: LIDOCAINE 2% 5 ML VIAL ONE (06:32)
[2020-05-26] MEDS ORDERED: fentaNYL 100 MCG/2 ML VIAL ONE (06:32)
[2020-05-26] MEDS ORDERED: ceFAZolin 1,000 MG VIAL ONE (06:59)
[2020-05-26] MEDS ORDERED: SODIUM CHLORIDE 0.9% 250 ML IV SCH (07:00)
[2020-05-26] MEDS ORDERED: ePHEDrine 50 MG/ML VIAL ONE (07:27)
[2020-05-26] MEDS ORDERED: GLYCOPYRROLATE 0.4 MG/2 ML VIAL ONE (07:32)
[2020-05-26] MEDS ORDERED: SEVOFLURANE 1 UNIT/15 MINUTE INH ONE ×3 (07:44→08:05)
[2020-05-26] MEDS ORDERED: hydrALAZINE 20 MG/1 ML VIAL IV ONE (09:12)
[2020-05-26] MEDS: INSULIN LISPRO 100 UNIT/ML SUBCUT SCH ×4 (09:27→21:24)
[2020-05-26] MEDS: hydrALAZINE 25 MG TABLET PO SCH ×3 (09:28→21:22)
[2020-05-26] MEDS: carvediloL 3.125 MG TABLET PO SCH (09:28)
[2020-05-26] MEDS: ISOSORBIDE MONONITRATE 30 MG TABLET PO SCH (09:29)
[2020-05-26] MEDS: ASPIRIN EC 81 MG TABLET PO SCH (09:29)
[2020-05-26] MEDS: PANTOPRAZOLE 40 MG TABLET PO SCH (09:29)
[2020-05-26] MEDS ORDERED: ceFAZolin 1,000 MG in SYRINGE 1 EACH IV ONE (10:57)
[2020-05-26] MEDS ORDERED: DEXTROSE 50% 25 GM/50 ML VIAL IV PRN (11:33)
[2020-05-26] MEDS ORDERED: GLUCAGON 1 MG VIAL IM PRN (11:33)
[2020-05-26 15:17] LABS: Hepatitis B Core IgM Quant 0.05 Index; Hepatitis B Surface Ag Quant < 0.10 Index; Hepatitis B Surface Ag Result Non-Reactive (NonReactive); Hepatitis C Virus Ab Quant 0.62 Index; Hepatitis C Virus Ab Result Non-Reactive (NonReactive)
[2020-05-26] MEDS: SEVELAMER CARBONATE 800 MG TABLET PO SCH (17:36)
[2020-05-26] MEDS: ROSUVASTATIN 20 MG TABLET PO SCH (21:22)
[2020-05-26] MEDS: ACETAMINOPHEN 325 MG TABLET PO PRN (21:22)
[2020-05-26] MEDS: carvediloL 6.25 MG TABLET PO SCH (21:22)
[2020-05-26] MEDS: MONTELUKAST 10 MG TABLET PO SCH (21:22)
[2020-05-27] MEDS: ACETAMINOPHEN 325 MG TABLET PO PRN (04:38)
[2020-05-27 06:19] LABS: Osmolality,Calculated 303.7 MOS/KG (273-304); Potassium 3.1 MMOL/L (3.5-5.1)
[2020-05-27] MEDS: ALBUTEROL/IPRATROPIUM 3 ML NEB RESP TX SCH ×4 (07:04→19:34)
[2020-05-27] MEDS: INSULIN LISPRO 100 UNIT/ML SUBCUT SCH ×4 (08:23→20:41)
[2020-05-27] MEDS: PANTOPRAZOLE 40 MG TABLET PO SCH (08:44)
[2020-05-27] MEDS: ASPIRIN EC 81 MG TABLET PO SCH (08:44)
[2020-05-27] MEDS: SEVELAMER CARBONATE 800 MG TABLET PO SCH ×3 (08:46→16:03)
[2020-05-27] MEDS ORDERED: HEPARIN 10,000 UNIT/10 ML VIAL IV SCH (10:45)
[2020-05-27] MEDS: carvediloL 6.25 MG TABLET PO SCH ×2 (12:38→20:35)
[2020-05-27] MEDS: ISOSORBIDE MONONITRATE 30 MG TABLET PO SCH (12:38)
[2020-05-27] MEDS: hydrALAZINE 25 MG TABLET PO SCH (12:39)
[2020-05-27] MEDS: MONTELUKAST 10 MG TABLET PO SCH (20:35)
[2020-05-27] MEDS: ROSUVASTATIN 20 MG TABLET PO SCH (20:35)
[2020-05-28 06:24] LABS: Basophils % 0.9 % (0.0-0.8); Eosinophils % 0.7 % (0.00-10.9); Hemoglobin 9.8 GM/DL (12.0-16.0); Immature Granulocytes % 0.2 %; Immature Granulocytes Absolute 0.01 #; Lymphocytes # 0.6 10*3/uL (1.4-4.0); Lymphocytes % 11.9 % (21.3-54.2); Mean Corpuscular HGB Conc 30.6 GM/DL (32-36); Mean Corpuscular Volume 84.9 FL (87-102); Mean Platelet Volume 10.4 FL (9.6-12.0); Monocytes % 11.3 % (1.7-12.7); Platelet Count 89 T/CUMM (130-400); Red Blood Count 3.77 MC/CUMM (3.8-5.5); Red Cell Distribution Width 17.5 % (9.3-17.3); White Blood Count 4.6 T/CUMM (4-12)
[2020-05-28 06:44] LABS: Osmolality,Calculated 290.8 MOS/KG (273-304); Potassium 3.3 MMOL/L (3.5-5.1)
[2020-05-28] MEDS: ALBUTEROL/IPRATROPIUM 3 ML NEB RESP TX SCH ×4 (07:06→19:15)
[2020-05-28 07:39] LABS: Platelet Estimate Decreased
[2020-05-28 07:40] LABS: Anisocytosis 1+; Hypochromasia 1+; Macrocytosis Slight; Ovalocytes Few
[2020-05-28] MEDS: INSULIN LISPRO 100 UNIT/ML SUBCUT SCH ×4 (08:23→21:27)
[2020-05-28] MEDS: SEVELAMER CARBONATE 800 MG TABLET PO SCH ×3 (09:28→16:53)
[2020-05-28] MEDS: PANTOPRAZOLE 40 MG TABLET PO SCH (09:29)
[2020-05-28] MEDS: ASPIRIN EC 81 MG TABLET PO SCH (09:29)
[2020-05-28] MEDS: carvediloL 6.25 MG TABLET PO SCH ×2 (09:29→21:26)
[2020-05-28] MEDS: ISOSORBIDE MONONITRATE 30 MG TABLET PO SCH (09:29)
[2020-05-28] MEDS: ACETAMINOPHEN 325 MG TABLET PO PRN (21:26)
[2020-05-28] MEDS: MONTELUKAST 10 MG TABLET PO SCH (21:27)
[2020-05-28] MEDS: DOCUSATE SODIUM 100 MG CAPSULE PO SCH (21:27)
[2020-05-28] MEDS: ROSUVASTATIN 20 MG TABLET PO SCH (21:27)
[2020-05-29 07:19] LABS: Calcium 7.7 MG/DL (8.5-10.1); Osmolality,Calculated 285.2 MOS/KG (273-304); Potassium 3.3 MMOL/L (3.5-5.1)
[2020-05-29] MEDS: ALBUTEROL/IPRATROPIUM 3 ML NEB RESP TX SCH ×4 (07:23→19:51)
[2020-05-29 07:50] LABS: Ferritin 24.5 ng/ml (8-252); Osmolality,Calculated 282.4 MOS/KG (273-304); Potassium 3.3 MMOL/L (3.5-5.1)
[2020-05-29 08:04] LABS: Folate 7.6 NG/ML (5.38-24.0); Vitamin B12 887 PG/ML (211-911)
[2020-05-29 08:07] LABS: Basophils % 0.7 % (0.0-0.8); Eosinophils % 0.6 % (0.00-10.9); Hematocrit 31.6 VOL% (35.7-47.0); Hemoglobin 9.6 GM/DL (12.0-16.0); Immature Granulocytes % 0.4 %; Immature Granulocytes Absolute 0.02 #; Lymphocytes # 0.6 10*3/uL (1.4-4.0); Lymphocytes % 10.4 % (21.3-54.2); Mean Corpuscular HGB Conc 30.4 GM/DL (32-36); Mean Corpuscular Volume 85.9 FL (87-102); Mean Platelet Volume 11.4 FL (9.6-12.0); Monocytes % 10.8 % (1.7-12.7); Neutrophils % 77.1 % (38.7-73.9); Platelet Count 98 T/CUMM (130-400); Red Blood Count 3.68 MC/CUMM (3.8-5.5); Red Cell Distribution Width 17.6 % (9.3-17.3); White Blood Count 5.4 T/CUMM (4-12)
[2020-05-29 08:41] LABS: Sedimentation Rate-Westergren 32 MM/HR (0-30)
[2020-05-29 08:45] LABS: Hypochromasia 1+; Microcytosis 1+; Platelet Estimate Decreased
[2020-05-29 08:46] LABS: Basophils % 0.7 % (0.0-0.8); Eosinophils % 0.5 % (0.00-10.9); Hematocrit 31.7 VOL% (35.7-47.0); Hemoglobin 9.5 GM/DL (12.0-16.0); Immature Granulocytes % 0.5 %; Immature Granulocytes Absolute 0.03 #; Lymphocytes # 0.6 10*3/uL (1.4-4.0); Mean Corpuscular Volume 85.4 FL (87-102); Mean Platelet Volume 11.4 FL (9.6-12.0); Monocytes % 10.7 % (1.7-12.7); Neutrophils % 76.6 % (38.7-73.9); Platelet Count 100 T/CUMM (130-400); Red Blood Count 3.71 MC/CUMM (3.8-5.5); Red Cell Distribution Width 17.7 % (9.3-17.3); White Blood Count 5.5 T/CUMM (4-12)
[2020-05-29 09:02] LABS: Anisocytosis 1+; Platelet Estimate Adequate
[2020-05-29 09:03] LABS: Hypochromasia Slight; Macrocytosis Slight
[2020-05-29] MEDS: INSULIN LISPRO 100 UNIT/ML SUBCUT SCH ×4 (09:47→20:28)
[2020-05-29] MEDS: carvediloL 6.25 MG TABLET PO SCH ×3 (09:48→20:28)
[2020-05-29] MEDS: ISOSORBIDE MONONITRATE 30 MG TABLET PO SCH ×2 (09:48→13:33)
[2020-05-29] MEDS: DOCUSATE SODIUM 100 MG CAPSULE PO SCH ×3 (09:48→20:28)
[2020-05-29] MEDS: POLYETHYLENE GLYCOL POWDER 17 GM PACK PO SCH ×2 (09:48→13:34)
[2020-05-29] MEDS: PANTOPRAZOLE 40 MG TABLET PO SCH ×2 (09:48→13:33)
[2020-05-29] MEDS: ASPIRIN EC 81 MG TABLET PO SCH ×2 (09:48→13:32)
[2020-05-29] MEDS: SEVELAMER CARBONATE 800 MG TABLET PO SCH ×3 (09:48→17:30)
[2020-05-29 11:04] LABS: Hemoglobin A1 (Alkaline) 97.6 % (96.5-98.5); Hemoglobin A2 (Alkaline) 2.4 % (1.5-3.5)
[2020-05-29] MEDS: MONTELUKAST 10 MG TABLET PO SCH (20:28)
[2020-05-29] MEDS: ROSUVASTATIN 20 MG TABLET PO SCH (20:28)
[2020-05-30 06:16] LABS: Basophils % 0.6 % (0.0-0.8); Eosinophils % 0.2 % (0.00-10.9); Hematocrit 33.1 VOL% (35.7-47.0); Hemoglobin 9.9 GM/DL (12.0-16.0); Immature Granulocytes % 0.2 %; Immature Granulocytes Absolute 0.01 #; Lymphocytes # 0.5 10*3/uL (1.4-4.0); Lymphocytes % 11.2 % (21.3-54.2); Mean Corpuscular HGB Conc 29.9 GM/DL (32-36); Mean Corpuscular Volume 86.9 FL (87-102); Mean Platelet Volume 10.9 FL (9.6-12.0); Monocytes % 9.9 % (1.7-12.7); Neutrophils % 77.9 % (38.7-73.9); Platelet Count 80 T/CUMM (130-400); Red Blood Count 3.81 MC/CUMM (3.8-5.5); Red Cell Distribution Width 17.6 % (9.3-17.3); White Blood Count 4.7 T/CUMM (4-12)
[2020-05-30 06:34] LABS: Calcium 7.9 MG/DL (8.5-10.1); Osmolality,Calculated 274.5 MOS/KG (273-304); Potassium 3.4 MMOL/L (3.5-5.1)
[2020-05-30 06:35] LABS: Hypochromasia 1+; Microcytosis 1+; Platelet Estimate Decreased
[2020-05-30 06:36] LABS: Ovalocytes Slight
[2020-05-30 06:53] LABS: Calcium 7.5 MG/DL (8.5-10.1); Osmolality,Calculated 278.2 MOS/KG (273-304); Potassium 3.5 MMOL/L (3.5-5.1)
[2020-05-30] MEDS: ALBUTEROL/IPRATROPIUM 3 ML NEB RESP TX SCH ×4 (07:13→19:11)
[2020-05-30] MEDS: PANTOPRAZOLE 40 MG TABLET PO SCH (08:44)
[2020-05-30] MEDS: ISOSORBIDE MONONITRATE 30 MG TABLET PO SCH (08:44)
[2020-05-30] MEDS: POLYETHYLENE GLYCOL POWDER 17 GM PACK PO SCH (08:44)
[2020-05-30] MEDS: ASPIRIN EC 81 MG TABLET PO SCH (08:44)
[2020-05-30] MEDS: SEVELAMER CARBONATE 800 MG TABLET PO SCH ×3 (08:44→16:53)
[2020-05-30] MEDS: DOCUSATE SODIUM 100 MG CAPSULE PO SCH ×2 (08:45→20:31)
[2020-05-30] MEDS: carvediloL 6.25 MG TABLET PO SCH ×2 (08:47→20:31)
[2020-05-30] MEDS: INSULIN LISPRO 100 UNIT/ML SUBCUT SCH ×4 (11:00→20:31)
[2020-05-30] MEDS: ROSUVASTATIN 20 MG TABLET PO SCH (20:31)
[2020-05-30] MEDS: MONTELUKAST 10 MG TABLET PO SCH (20:31)
[2020-05-31 05:43] LABS: Basophils % 0.6 % (0.0-0.8); Eosinophils % 0.7 % (0.00-10.9); Hemoglobin 9.6 GM/DL (12.0-16.0); Immature Granulocytes % 0.4 %; Immature Granulocytes Absolute 0.02 #; Lymphocytes # 0.6 10*3/uL (1.4-4.0); Lymphocytes % 10.8 % (21.3-54.2); Mean Corpuscular Volume 86.3 FL (87-102); Mean Platelet Volume 10.7 FL (9.6-12.0); Monocytes % 9.7 % (1.7-12.7); Neutrophils % 77.8 % (38.7-73.9); Platelet Count 91 T/CUMM (130-400); Red Blood Count 3.71 MC/CUMM (3.8-5.5); Red Cell Distribution Width 17.4 % (9.3-17.3); White Blood Count 5.4 T/CUMM (4-12)
[2020-05-31 05:59] LABS: Calcium 7.9 MG/DL (8.5-10.1); Osmolality,Calculated 277.5 MOS/KG (273-304); Potassium 3.8 MMOL/L (3.5-5.1)
[2020-05-31 06:14] LABS: Anisocytosis 2+; Platelet Estimate Decreased; Target Cells Few
[2020-05-31 06:15] LABS: Hypochromasia Slight; Ovalocytes Few; Poikilocytosis Slight; Tear Drop Cells Few
[2020-05-31] MEDS: ALBUTEROL/IPRATROPIUM 3 ML NEB RESP TX SCH ×2 (07:19→12:03)
[2020-05-31] MEDS: INSULIN LISPRO 100 UNIT/ML SUBCUT SCH (07:57)
[2020-05-31] MEDS ORDERED: ERGOCALCIFEROL 50,000 UNIT CAPSULE PO SCH (09:00)
[2020-05-31] MEDS: DOCUSATE SODIUM 100 MG CAPSULE PO SCH (12:49)
[2020-05-31] MEDS: ISOSORBIDE MONONITRATE 30 MG TABLET PO SCH (12:49)
[2020-05-31] MEDS: carvediloL 6.25 MG TABLET PO SCH (12:49)
[2020-05-31] MEDS: POLYETHYLENE GLYCOL POWDER 17 GM PACK PO SCH (12:50)
[2020-05-31] MEDS: ASPIRIN EC 81 MG TABLET PO SCH (12:50)
[2020-05-31] MEDS: PANTOPRAZOLE 40 MG TABLET PO SCH (12:50)
[2020-05-31] MEDS: SEVELAMER CARBONATE 800 MG TABLET PO SCH ×2 (12:50→12:56)
[2020-05-31 14:43] VITALS: BP 156/78
== END 2020-05-31 14:29 | disposition home health service (06) | DRG 628 ==
LOC: N.OR 06:53 → N.SDSINP 06:55 → SUATTDRO 11:14 → N.TELEN 17:41
PROVIDERS: ADMIT Family Medicine; ATTEND Internal Medicine

== ENCOUNTER 2020-12-18 09:04 | Inpatient (IN) ==
[2020-12-18 10:25] LABS: Basophils # 0.1 10*3/uL (0.0-0.2); Basophils % 1.1 % (0.0-0.8); Eosinophils # 0.2 10*3/uL (0.0-0.87); Eosinophils % 2.3 % (0.00-10.9); Hematocrit 30.9 VOL% (35.7-47.0); Hemoglobin 10.2 GM/DL (12.0-16.0); Immature Granulocytes % 0.3 %; Immature Granulocytes Absolute 0.02 #; Lymphocytes % 15.5 % (21.3-54.2); Mean Corpuscular Volume 98.7 FL (87-102); Mean Platelet Volume 10.8 FL (9.6-12.0); Monocytes % 7.4 % (1.7-12.7); NRBC # 0.07 10*3/uL; Neutrophils % 73.4 % (38.7-73.9); Platelet Count 128 T/CUMM (130-400); Red Blood Count 3.13 MC/CUMM (3.8-5.5); Red Cell Distribution Width 19.1 % (9.3-17.3); White Blood Count 6.6 T/CUMM (4-12)
[2020-12-18 10:50] LABS: Hypochromasia 3+
[2020-12-18 10:51] LABS: Anisocytosis 1+
[2020-12-18 10:53] LABS: Macrocytosis Slight; Microcytosis Slight; Polychromasia Slight
[2020-12-18 10:54] LABS: Platelet Estimate Decreased
[2020-12-18 11:01] LABS: Albumin 2.4 G/DL (3.4-5.0); Osmolality,Calculated 279.4 MOS/KG (273-304); Potassium 4.8 MMOL/L (3.5-5.1); Total Protein 8.1 G/DL (6.4-8.2)
[2020-12-18] MEDS ORDERED: cefTRIAXone 2,000 MG in SODIUM CHLORIDE 0.9% 100 ML IV SCH (12:30)
[2020-12-18] MEDS ORDERED: LABETALOL 20 MG/4 ML SYRINGE IV PRN (12:36)
[2020-12-18] MEDS: ASPIRIN 325 MG TABLET PO SCH (13:33)
[2020-12-18] MEDS: LIDOCAINE/PRILOCAINE CREAM 5 GM TUBE TOP SCH (17:48)
[2020-12-18] MEDS: HEPARIN 5,000 UNIT/1 ML VIAL SUBCUT SCH (17:49)
[2020-12-18] MEDS: AZITHROMYCIN INJ 500 MG in SODIUM CHLORIDE 0.9% 250 ML IV SCH (17:49)
[2020-12-18] MEDS: INSULIN LISPRO 100 UNIT/ML SUBCUT SCH ×2 (17:50→20:24)
[2020-12-18] MEDS ORDERED: ROSUVASTATIN 20 MG TABLET PO SCH (21:00)
[2020-12-19] MEDS: HEPARIN 5,000 UNIT/1 ML VIAL SUBCUT SCH ×2 (01:07→12:10)
[2020-12-19 05:39] LABS: Basophils # 0.1 10*3/uL (0.0-0.2); Basophils % 1.3 % (0.0-0.8); Eosinophils # 0.1 10*3/uL (0.0-0.87); Eosinophils % 1.7 % (0.00-10.9); Hematocrit 31.9 VOL% (35.7-47.0); Hemoglobin 10.5 GM/DL (12.0-16.0); Immature Granulocytes % 0.3 %; Immature Granulocytes Absolute 0.02 #; Lymphocytes % 14.1 % (21.3-54.2); Mean Corpuscular HGB Conc 32.9 GM/DL (32-36); Mean Corpuscular Volume 101.3 FL (87-102); Mean Platelet Volume 10.6 FL (9.6-12.0); Monocytes % 9.5 % (1.7-12.7); NRBC # 0.04 10*3/uL; Neutrophils % 73.1 % (38.7-73.9); Platelet Count 109 T/CUMM (130-400); Red Blood Count 3.15 MC/CUMM (3.8-5.5); Red Cell Distribution Width 19.4 % (9.3-17.3); White Blood Count 7.2 T/CUMM (4-12)
[2020-12-19 06:25] LABS: Calcium 8.9 MG/DL (8.5-10.1); Risk Ratio 1.93; VLDL Cholesterol 13.2 MG/DL
[2020-12-19 06:28] LABS: Hypochromasia 1+
[2020-12-19 06:29] LABS: Anisocytosis 1+; Macrocytosis 1+; Platelet Estimate Decreased; Polychromasia Slight
[2020-12-19] MEDS: INSULIN LISPRO 100 UNIT/ML SUBCUT SCH ×4 (08:24→20:22)
[2020-12-19] MEDS: PANTOPRAZOLE 40 MG TABLET PO SCH (09:00)
[2020-12-19] MEDS: SEVELAMER CARBONATE 800 MG TABLET PO SCH ×3 (09:00→17:08)
[2020-12-19] MEDS: AZITHROMYCIN INJ 500 MG in SODIUM CHLORIDE 0.9% 250 ML IV SCH (09:00)
[2020-12-19] MEDS: ASPIRIN 325 MG TABLET PO SCH (09:04)
[2020-12-19] MEDS: cefTRIAXone 2,000 MG in SODIUM CHLORIDE 0.9% 100 ML IV SCH (12:11)
[2020-12-19] MEDS: LIDOCAINE/PRILOCAINE CREAM 5 GM TUBE TOP SCH (13:46)
[2020-12-19] MEDS ORDERED: hydrALAZINE 25 MG TABLET PO SCH (15:00)
[2020-12-19] MEDS: FUROSEMIDE 80 MG TABLET PO SCH (17:08)
[2020-12-19] MEDS: METOPROLOL TARTRATE 25 MG TABLET PO SCH (20:21)
[2020-12-20] MEDS: HEPARIN 5,000 UNIT/1 ML VIAL SUBCUT SCH ×2 (01:02→22:05)
[2020-12-20 05:31] LABS: Basophils # 0.1 10*3/uL (0.0-0.2); Eosinophils # 0.1 10*3/uL (0.0-0.87); Eosinophils % 1.6 % (0.00-10.9); Hematocrit 32.7 VOL% (35.7-47.0); Hemoglobin 10.5 GM/DL (12.0-16.0); Immature Granulocytes % 0.2 %; Immature Granulocytes Absolute 0.01 #; Lymphocytes # 1.3 10*3/uL (1.4-4.0); Lymphocytes % 23.5 % (21.3-54.2); Mean Corpuscular HGB Conc 32.1 GM/DL (32-36); Mean Corpuscular Volume 100.3 FL (87-102); Mean Platelet Volume 10.2 FL (9.6-12.0); Monocytes % 13.7 % (1.7-12.7); NRBC # 0.05 10*3/uL; Platelet Count 121 T/CUMM (130-400); Red Blood Count 3.26 MC/CUMM (3.8-5.5); Red Cell Distribution Width 19.4 % (9.3-17.3); White Blood Count 5.5 T/CUMM (4-12)
[2020-12-20 05:55] LABS: Calcium 8.9 MG/DL (8.5-10.1); Osmolality,Calculated 272.4 MOS/KG (273-304); Potassium 4.5 MMOL/L (3.5-5.1)
[2020-12-20 05:59] LABS: Hypochromasia 1+; Macrocytosis 1+; Polychromasia Slight
[2020-12-20 06:00] LABS: Platelet Estimate Adequate
[2020-12-20 06:05] LABS: Albumin 2.5 G/DL (3.4-5.0); Bilirubin,Direct 0.86 MG/DL (0.0-0.20); Bilirubin,Indirect 1.1 MG/DL (0.0-1.0); Calcium 8.8 MG/DL (8.5-10.1); Osmolality,Calculated 270.5 MOS/KG (273-304); Potassium 4.5 MMOL/L (3.5-5.1); Total Protein 7.8 G/DL (6.4-8.2)
[2020-12-20] MEDS: AZITHROMYCIN 250 MG TABLET PO SCH (08:46)
[2020-12-20] MEDS: cefTRIAXone 2,000 MG in SODIUM CHLORIDE 0.9% 100 ML IV SCH (08:46)
[2020-12-20] MEDS: SEVELAMER CARBONATE 800 MG TABLET PO SCH ×3 (08:47→16:08)
[2020-12-20] MEDS: METOPROLOL TARTRATE 25 MG TABLET PO SCH ×2 (08:47→22:04)
[2020-12-20] MEDS: CLOPIDOGREL 75 MG TABLET PO SCH (08:47)
[2020-12-20] MEDS: ASPIRIN 325 MG TABLET PO SCH (08:47)
[2020-12-20] MEDS: PANTOPRAZOLE 40 MG TABLET PO SCH (08:47)
[2020-12-20] MEDS: FUROSEMIDE 80 MG TABLET PO SCH ×2 (08:47→16:08)
[2020-12-20] MEDS ORDERED: LIDOCAINE/PRILOCAINE CREAM 5 GM TUBE TOP SCH (09:00)
[2020-12-20] MEDS: INSULIN LISPRO 100 UNIT/ML SUBCUT SCH ×4 (09:36→22:05)
[2020-12-20 12:52] LABS: Hepatitis B Core IgM Quant 0.28 Index; Hepatitis B Surface Ag Quant < 0.10 Index; Hepatitis B Surface Ag Result Non-Reactive (NonReactive); Hepatitis C Virus Ab Quant 0.88 Index
[2020-12-20] MEDS: hydrALAZINE 25 MG TABLET PO SCH ×2 (16:08→22:05)
[2020-12-21 04:57] LABS: Basophils # 0.1 10*3/uL (0.0-0.2); Basophils % 2.2 % (0.0-0.8); Eosinophils # 0.1 10*3/uL (0.0-0.87); Eosinophils % 2.2 % (0.00-10.9); Hematocrit 31.1 VOL% (35.7-47.0); Hemoglobin 10.1 GM/DL (12.0-16.0); Immature Granulocytes % 0.2 %; Immature Granulocytes Absolute 0.01 #; Lymphocytes # 1.1 10*3/uL (1.4-4.0); Lymphocytes % 21.8 % (21.3-54.2); Mean Corpuscular HGB Conc 32.5 GM/DL (32-36); Mean Corpuscular Volume 100.6 FL (87-102); Mean Platelet Volume 10.5 FL (9.6-12.0); Monocytes % 15.2 % (1.7-12.7); NRBC # 0.04 10*3/uL; Neutrophils % 58.4 % (38.7-73.9); Platelet Count 105 T/CUMM (130-400); Red Blood Count 3.09 MC/CUMM (3.8-5.5); Red Cell Distribution Width 19.2 % (9.3-17.3)
[2020-12-21 05:17] LABS: Hypochromasia 1+; Microcytosis 1+; Platelet Estimate Decreased
[2020-12-21 05:48] LABS: Osmolality,Calculated 268.5 MOS/KG (273-304); Potassium 4.4 MMOL/L (3.5-5.1)
[2020-12-21] MEDS: INSULIN LISPRO 100 UNIT/ML SUBCUT SCH ×2 (08:34→12:34)
[2020-12-21] MEDS ORDERED: ISOSORBIDE MONONITRATE 30 MG TABLET PO SCH (09:00)
[2020-12-21] MEDS: METOPROLOL TARTRATE 25 MG TABLET PO SCH (09:38)
[2020-12-21] MEDS: AZITHROMYCIN 250 MG TABLET PO SCH (09:38)
[2020-12-21] MEDS: ASPIRIN 325 MG TABLET PO SCH (09:38)
[2020-12-21] MEDS: CLOPIDOGREL 75 MG TABLET PO SCH (09:38)
[2020-12-21] MEDS: FUROSEMIDE 80 MG TABLET PO SCH (09:38)
[2020-12-21] MEDS: SEVELAMER CARBONATE 800 MG TABLET PO SCH ×2 (09:38→12:34)
[2020-12-21] MEDS: HEPARIN 5,000 UNIT/1 ML VIAL SUBCUT SCH (09:39)
[2020-12-21] MEDS: cefTRIAXone 2,000 MG in SODIUM CHLORIDE 0.9% 100 ML IV SCH (09:39)
[2020-12-21] MEDS: PANTOPRAZOLE 40 MG TABLET PO SCH (09:50)
[2020-12-21] MEDS: hydrALAZINE 25 MG TABLET PO SCH ×2 (09:50→15:40)
[2020-12-21 12:06] VITALS: BP 123/55
[2020-12-22] MEDS ORDERED: LEVOFLOXACIN 250 MG TABLET PO SCH (09:00)
== END 2020-12-21 15:55 | disposition home or self-care (01) | DRG 193 ==
LOC: EDUNIT# → N.ED 09:04 → N.EDINP 12:25 → N.5E 17:46
PROVIDERS: ADMIT Hospitalist; ATTEND Hospitalist